=== PATIENT | female | born 1935 | race Caucasian/White ===

== ENCOUNTER 2019-08-30 09:08 | Outpatient (CLI) | payer MEDICARE, SELFPAY ==
--- NOTE | 2019-08-30 09:17 | MM_ITS ---
WS: [id number] BILATERAL SCREENING DIGITAL MAMMOGRAM WITH CAD HISTORY: SCREENING COMPARISON: 04/26/2018 and 11/12/2016 Bilateral CC and MLO views submitted. Computer aided detection analyzed. Breast composition: There are scattered areas of fibroglandular density. No suspicious masses, microc alcifications or architectural distortion. Benign breast arterial calcifications within each breast. MM/[place] [id number] IMPRESSION: BI-RADS: 2-Benign FOLLOW UP: 1 Year Follow-up
== END 2019-08-30 09:09 | disposition home or self-care (01) ==
LOC: RADSHAW 09:10
PROVIDERS: PCP Family Medicine; Visit Provider Family Medicine
DX: Z12.31 Encounter for screening mammogram for malignant neoplasm of breast (principal)
CPT/HCPCS: 77067

== ENCOUNTER 2019-09-18 13:46 | Outpatient (CLI) | payer MEDICARE, SELFPAY ==
--- NOTE | 2019-09-18 13:59 | XR_ITS ---
WS: [id number] SCREENING DEXA SCAN [facility] CLINICAL INFORMATION: OSTEOPOROSIS COMPARISON: None. FINDINGS: The L1-L4 bone mineral density measures 1.504 g/cm2. This corresponds to a T score score of 2.7 and Z score of 4.4. Right femoral neck bone mineral density measures 0.826. This corresponds to a T score -1.4of and Z sc ore of 0.6. XR/XR DEXA axial skeleton* [id number] IMPRESSION: Osteopenia Patient's FRAX calculated 10 year probability for major osteoporotic fracture i s 21.7 % and osteoporotic hip fracture is 6.1%.
== END 2019-09-18 13:47 | disposition home or self-care (01) ==
LOC: RADWPI 13:49
PROVIDERS: Family Provider Family Medicine; PCP Family Medicine; Visit Provider Family Medicine
DX: M81.0 Age-related osteoporosis without current pathological fracture (principal)
CPT/HCPCS: 77080

== ENCOUNTER → 2019-10-16 13:52 | Outpatient (BNVA) | payer MEDICARE, SELFPAY | PROVIDERS: Family Provider Family Medicine; PCP Family Medicine; Visit Provider Dermatology | DX: D48.9 Neoplasm of uncertain behavior, unspecified (principal); L57.0 Actinic keratosis; Z85.828 Personal history of other malignant neoplasm of skin; Z12.83 Encounter for screening for malignant neoplasm of skin | CPT/HCPCS: 11102; 17000; 17003; 88305; 99203 ==

== ENCOUNTER → 2019-10-19 09:58 | Outpatient (BNVA) | payer MEDICARE, SELFPAY | PROVIDERS: Family Provider Family Medicine; PCP Family Medicine; Visit Provider Dermatology | DX: D48.9 Neoplasm of uncertain behavior, unspecified (principal) | CPT/HCPCS: 88304 ==

== ENCOUNTER → 2019-11-22 15:24 | Outpatient (BNVA) | payer MEDICARE, SELFPAY | PROVIDERS: Family Provider Family Medicine; PCP Family Medicine; Visit Provider Dermatology | DX: L24.9 Irritant contact dermatitis, unspecified cause (principal); L57.0 Actinic keratosis | CPT/HCPCS: 17000; 17003; 99213; 99214 ==

== ENCOUNTER 2020-09-03 08:52 | Outpatient (CLI) | payer MEDICARE, SELFPAY ==
--- NOTE | 2020-09-03 09:04 | MM_ITS ---
WS: [id number] Bilateral screening digital mammogram, 09/03/2020 08/30/2019, 04/26/2018, 11/12/2016, 10/15/2015, 09/23/2014, 08/29/2013. Clinical Data: SCREENING Comparison: None. Findings: The breast parenchymal pattern shows fibroglandular tissue. No spiculated masses or clustered calcifi cations are seen. There are no secondary signs of carcinoma. Multiple markers are on the right breast . There are small vascular calcifications in both breasts. MM/[place] [id number] Impression: 1. Negative bilateral mammogram unchanged. 2. Recommend annual screening mammograms. BIRADS: 1-Negative FOLLOW UP: 1 Year Follow-up The CAD core checker was used.
== END 2020-09-03 08:53 | disposition home or self-care (01) ==
PROVIDERS: Family Provider Family Medicine; PCP Family Medicine; Visit Provider Family Medicine
DX: Z12.31 Encounter for screening mammogram for malignant neoplasm of breast (principal)
CPT/HCPCS: 77067

== ENCOUNTER → 2021-09-29 12:29 | Outpatient (BNVA) | payer MEDICARE, SELFPAY | PROVIDERS: Family Provider Family Medicine; PCP Family Medicine; Visit Provider Internal Medicine Cardiovascular Disease | DX: I10 Essential (primary) hypertension (principal); I45.10 Unspecified right bundle-branch block | CPT/HCPCS: 99213 ==

== ENCOUNTER 2021-10-09 13:38 | Outpatient (CLI) | payer MEDICARE, SELFPAY ==
--- NOTE | 2021-10-09 13:44 | MM_ITS ---
WS: [id number] BILATERAL 3D TOMOSYNTHESIS DIGITAL SCREENING MAMMOGRAPHY WITH CAD CLINICAL INFORMATION: SCREENING HISTORY: Screening mammogram. No current complaints. COMPARISON: September 03, 2020 TECHNIQUE: Bilateral CC and MLO views. FINDINGS: Scattered fibroglandular densities bilaterally. Vascular calcification. No suspicious focal mass, asy mmetry, calcifications, or architectural distortion. No evidence of malignancy. MM/[place] [id number] IMPRESSION: BI-RADS: 2-Benign FOLLOW UP: 1 Year Follow-up Recommend return to annual screening mammography.
== END 2021-10-09 13:39 | disposition home or self-care (01) ==
LOC: RAD 13:38
PROVIDERS: Family Provider Family Medicine; PCP Family Medicine; Visit Provider Family Medicine
DX: Z12.31 Encounter for screening mammogram for malignant neoplasm of breast (principal)
CPT/HCPCS: 77063; 77067

== ENCOUNTER 2021-10-26 13:01 | Outpatient (CLI) | payer MEDICARE, SELFPAY ==
--- NOTE | 2021-10-26 13:20 | XR_ITS ---
WS: [id number] DEXA (DUAL ENERGY X-RAY ABSORPTIOMETRY) Bone mineral density was performed using a [employer] machine. HISTORY: POST MENOPAUSAL COMPARISON: 09/18/2019 Lumbar spine BMD (L1-L4): 1.508 g/cm2 T score: 2.7 Z score: 4.4 Total hip BMD: Right: 0.821. T score: -1.5 Z score: 0.6 10 year probability of a major osteoporotic fracture is 21.5%. Compared to the prior study from 09/18/2019. Lumbar spine bone mineral density has increased by 0.3%. RIGHT hip bone mineral density has decreased by 0.6%. IMPRESSION: OSTEOPENIA based upon the WHO classification for females. No significant change in bone mineral density since the prior study.
== END 2021-10-26 13:02 | disposition home or self-care (01) ==
PROVIDERS: PCP Family Medicine; Visit Provider Family Medicine
DX: Z78.0 Asymptomatic menopausal state (principal); M85.80 Other specified disorders of bone density and structure, unspecified site
CPT/HCPCS: 77080

== ENCOUNTER → 2022-02-10 08:14 | Outpatient (BNVA) | payer MEDICARE, SELFPAY | PROVIDERS: PCP Family Medicine; Visit Provider Family Medicine | DX: I10 Essential (primary) hypertension (principal); K21.9 Gastro-esophageal reflux disease without esophagitis; Z00.00 Encounter for general adult medical examination without abnormal findings | CPT/HCPCS: 80053; 80061; 85025 ==

== ENCOUNTER → 2022-05-13 08:56 | Outpatient (BNVA) | payer MEDICARE, SELFPAY | PROVIDERS: PCP Family Medicine; Visit Provider Nurse Practitioner Family | DX: I10 Essential (primary) hypertension (principal) | CPT/HCPCS: 99213 ==

== ENCOUNTER → 2022-09-30 09:03 | Outpatient (BNVA) | payer MEDICARE, SELFPAY | PROVIDERS: PCP Family Medicine; Visit Provider Nurse Practitioner Family | DX: L57.0 Actinic keratosis (principal); L23.9 Allergic contact dermatitis, unspecified cause; L57.8 Other skin changes due to chronic exposure to nonionizing radiation; L81.4 Other melanin hyperpigmentation; Z85.828 Personal history of other malignant neoplasm of skin | CPT/HCPCS: 17000; 17003; 99214 ==

== ENCOUNTER 2022-10-26 11:10 | Outpatient (CLI) | payer MEDICARE, SELFPAY ==
--- NOTE | 2022-10-26 11:38 | MM_ITS ---
WS: [id number] BILATERAL 3D TOMOSYNTHESIS DIGITAL SCREENING MAMMOGRAPHY WITH CAD CLINICAL INFORMATION: SCREENING HISTORY: Screening mammogram. No current complaints. COMPARISON: 2021 TECHNIQUE: Bilateral CC and MLO views. FINDINGS: Scattered fibroglandular densities bilaterally. No suspicious focal mass, asymmetry, calcifications, or architectural distortion. No evidence of malignancy. Vascular calcification. MM/[place] [id number] IMPRESSION: BI-RADS: 2-Benign FOLLOW UP: 1 Year Follow-up Recommend return to annual screening mammography.
== END 2022-10-26 11:11 | disposition home or self-care (01) ==
LOC: RAD 11:13
PROVIDERS: PCP Family Medicine; Visit Provider Family Medicine
DX: Z12.31 Encounter for screening mammogram for malignant neoplasm of breast (principal)
CPT/HCPCS: 77063; 77067

== ENCOUNTER → 2022-11-23 10:10 | Outpatient (BNVA) | payer MEDICARE, SELFPAY | PROVIDERS: PCP Family Medicine; Visit Provider Family Medicine | DX: Z00.00 Encounter for general adult medical examination without abnormal findings (principal); I10 Essential (primary) hypertension; K21.9 Gastro-esophageal reflux disease without esophagitis; M81.0 Age-related osteoporosis without current pathological fracture | CPT/HCPCS: 80053; 80061; 85025 ==

== ENCOUNTER → 2022-12-02 09:35 | Outpatient (BNVA) | payer MEDICARE, SELFPAY | PROVIDERS: PCP Family Medicine; Visit Provider Nurse Practitioner Family | DX: L23.9 Allergic contact dermatitis, unspecified cause (principal); L57.8 Other skin changes due to chronic exposure to nonionizing radiation; L57.0 Actinic keratosis; L85.3 Xerosis cutis; Z85.828 Personal history of other malignant neoplasm of skin | CPT/HCPCS: 17004; 99214 ==

== ENCOUNTER → 2022-12-08 12:44 | Outpatient (BNVA) | payer MEDICARE, SELFPAY | PROVIDERS: PCP Family Medicine; Visit Provider Internal Medicine Cardiovascular Disease | DX: I10 Essential (primary) hypertension (principal); I45.10 Unspecified right bundle-branch block | CPT/HCPCS: 99213 ==

== ENCOUNTER → 2023-02-07 13:12 | Outpatient (BNVA) | payer MEDICARE, SELFPAY | PROVIDERS: PCP Family Medicine; Visit Provider Dermatology | DX: D48.5 Neoplasm of uncertain behavior of skin (principal); L23.9 Allergic contact dermatitis, unspecified cause; D18.01 Hemangioma of skin and subcutaneous tissue; L82.1 Other seborrheic keratosis; Z85.828 Personal history of other malignant neoplasm of skin | CPT/HCPCS: 11102; 99213 ==

== ENCOUNTER → 2023-03-11 08:16 | Outpatient (BNVA) | payer MEDICARE, SELFPAY | PROVIDERS: PCP Family Medicine; Visit Provider Dermatology | DX: C44.612 Basal cell carcinoma of skin of right upper limb, including shoulder (principal) | CPT/HCPCS: 11602; 12032 ==

== ENCOUNTER → 2023-03-25 08:44 | Outpatient (BNVA) | payer MEDICARE, SELFPAY | PROVIDERS: PCP Family Medicine; Visit Provider Nurse Practitioner Family | DX: Z48.02 Encounter for removal of sutures (principal) | CPT/HCPCS: 99212 ==

== ENCOUNTER → 2023-06-08 13:15 | Outpatient (BNVA) | payer MEDICARE, SELFPAY | PROVIDERS: PCP Family Medicine; Visit Provider Internal Medicine Cardiovascular Disease | DX: I10 Essential (primary) hypertension (principal); I45.10 Unspecified right bundle-branch block | CPT/HCPCS: 99213 ==

== ENCOUNTER → 2023-12-06 09:02 | Outpatient (BNVA) | payer MEDICARE, SELFPAY | PROVIDERS: PCP Family Medicine; Visit Provider Nurse Practitioner Family | DX: I10 Essential (primary) hypertension (principal) | CPT/HCPCS: 99213 ==

== ENCOUNTER → 2024-02-08 11:06 | Outpatient (BNVA) | payer MEDICARE, SELFPAY | PROVIDERS: PCP Family Medicine; Visit Provider Family Medicine | DX: I10 Essential (primary) hypertension (principal); Z00.00 Encounter for general adult medical examination without abnormal findings | CPT/HCPCS: 80053; 80061; 85025 ==

== ENCOUNTER 2024-02-17 05:50 | Emergency (ER) | payer MEDICARE, SELFPAY ==
[2024-02-17] VITALS (8 sets, daily range): BP systolic 119–161; BP diastolic 68–86; PULSE 88–100; RESP 15–18; TEMP 36.8; O2SAT 94–99; BMI 27.3
--- NOTE | 2024-02-17 05:57 | XRR_ITS ---
PROCEDURE INFORMATION: Exam: XR Left Hip Exam date and time: 02/17/2024 6:20 AM Age: 88 years old Clinical indication: Injury or trauma; Fall; Blunt trauma (contusions or hematomas); Left; Prior surgery; Surgery date: 6+ months; Surgery type: Lt hip TECHNIQUE: Imaging protocol: Radiologic exam of the left hip. Views: 2 or 3 views hip with pelvis when performed. COMPARISON: CR XR hip LT 2-3V wo/w pel* [id number] 05/17/2018 4:22 PM FINDINGS: Bones/joints: Total-knee replacement. Anatomic alignment. Bone and metal are intact.. No acute fracture. Soft tissues: Unremarkable. XR/XR hip LT 2-3V wo/w pel* [id number] IMPRESSION: No acute findings.
--- NOTE | 2024-02-17 05:58 | ED_ITS ---
HPI - General Adult 2 General: Chief complaint: Extremity Injury, Lower Stated complaint: Fall, LT side hip pain Time Seen by Provider: 02/17/24 05:50 History of Present Illness: 88-year-old female presents to the emerg ency room via EMS after a fall. She fell around 5:00 yesterday she is approximately 13 hours after the fall she had laid on the floor since that time. She was not able to get herself up when EMS got there she states she did partially bear weight on the left leg but it was extremely painful she complaining of pain at the left hip. She has previously had a right hip arthroplasty. She denies any other injury no loss consciousness did not strike her head no chest pain no shortness of breath no abdominal pain not recently been ill. Associated symptoms: Deny chest pain, dyspnea or rash Related Data Home Medications Medication Instructions Recorded Confirmed calcium carbonate (Calcium 600) 600 mg PO DAILY 08/08/19 02/17/24 omeprazole 20 mg capsule,delayed 20 mg PO DAILY 02/17/24 02/17/24 release oxybutynin chloride 5 mg tablet 5 mg PO DAILY 02/17/24 02/17/24 Previous Rx's Medication Instructions Recorded hydralazine 25 mg tablet 25 mg PO TID #270 tabs 04/01/23 hydralazine 10 mg tablet 10 mg PO .prn PRN hypertension #30 04/20/23 tabs alendronate 70 mg tablet See Rx Instructions .Route 11/15/23 .COMPLEX #12 tabs losartan 100 mg tablet 100 mg PO DAILY #90 tabs 12/06/23 Allergies Allergy/AdvReac Type Severity Reaction Status Date / Time Penicillins Allergy Unknown Verified 12/06/23 09:08 Review of Systems 2 Const: Denies: fever(s) or chills Card: Denies: chest pain Resp: Denies: dyspnea GI: Denies: abdominal pain : Denies: dysuria, urinary frequency or urinary urgency Musc: Reports: joint pain; Denies: neck pain or back pain Skin/Breast: Denies: rash PFSH ED 2 PFSH: Medical History History of nonmelanoma skin cancer HTN (hypertension) GERD (gastroesophageal reflux disease) RBBB Surgical History S/P tubal ligation History of hip surgery Left S/P total knee replacement Bilateral S/P tonsillectomy History of suburethral sling procedure Family History Sister Diabetes Denies family history of CAD (coronary artery disease) Clotting disorder Dementia Chronic kidney disease (CKD) Suicide Anesthesia complication Bleeding disorder Lung disease Cancer Stroke Social History Smoking and tobacco/nicotine status: never used tobacco/nicotine Alcohol intake: current Alcohol intake frequency: few times a week Alcohol type: wine Substance/Drug Use: never Physical Exam 2 Const: COMMON NORMALS: no acute distress GENERAL APPEARANCE: cooperative and comfortable ORIENTATION/CONSCIOUSNESS: Yes awake, Yes oriented to person, Yes oriented to place and Yes oriented to time HENMT: COMMON NORMALS: normocephalic, atraumatic and hearing grossly normal bilaterally HEAD & SCALP: normocephalic and atraumatic Resp: COMMON NORMALS: normal respiratory effort, No retractions, No use of accessory muscles and clear to auscultation bilaterally AUSCULTATION: clear to auscultation bilaterally Cardio: COMMON NORMALS: regular rate, regular rhythm and No murmurs present (Cardio) RATE: regular rate RHYTHM: regular rhythm GI: COMMON NORMALS: Soft to palpation and No hepatosplenomegaly present A USCULTATION: Yes normoactive bowel sounds PALPATION: Yes Soft to palpation, No Tenderness to palpation present (GI), No Guarding due to palpation present (GI) and Yes No hepatosplenomegaly present Extremity: COMMON NORMALS: normal to inspection, capillary refill normal, no clubbing, cyanosis or edema, no calf tenderness and no pedal edema OTHER: Pain at the right hip but patient does spontaneously flex at the hip mild discomfort reported neurovascularly left leg is intact distally Neuro: SENSORIUM/ORIENTATION: Yes oriented to person, Yes oriented to place and Yes oriented to time Skin: COMMON NORMALS: no rashes or lesions noted GENERAL SKIN EXAM: no rashes or lesions noted Course 2 Vital Signs: Vital signs: Vital Signs Temperature 98.3 F 02/17/24 05:55 Pulse Rate 100 02/17/24 09:36 Respiratory Rate 18 02/17/24 06:38 Blood Pressure 134/76 02/17/24 09:36 Pulse Oximetry 97 02/17/24 09:36 Oxygen Delivery Me thod Room Air 02/17/24 06:00 MDM - General Adult Medical Decision Making X-ray negative patient is still complaining of pain. CT done no findings of fracture. Reviewed with her she was able to ambulate after that to the bathroom twice without significant difficulty. She has a mild elevation of her CPK. Creatinine is normal at this point I do not think she will require hospitalization will discharge patient home increase fluid intake follow-up with your primary care doctor next week for repeat lab testing. Medical Records I reviewed the patient's medical records. Lab Data I reviewed the patient's lab results. 02/17/24 05:37 02/17/24 05:37 Radiology Impressions Hip/Pelvis X-Ray 02/17/24 05:57 IMPRESSION: No acute findings. Chest X-Ray 02/17/24 05:58 IMPRESSION: Minimal left lower lobe infiltrate. Hip CT 02/17/24 06:57 IMPRESSION: 1. Hip replacement. 2. No acute abnormality. Laboratory Results WBC 12.43 10^3/uL (3.29-11.43) H 02/17/24 05:37 RBC 4.76 10^6/uL (3.85-5.65) 02/17/24 05:37 Hgb 13.60 g/dL (11.27-16.99) 02/17/24 05:37 Hct 41.8 % (36-47) 02/17/24 05:37 MCV 87.8 fl (85-98) 02/17/24 05:37 MCH 28.6 pg (27-33) 02/17/24 05:37 MCHC 32.5 g/dL (30-55) 02/17/24 05:37 RDW 15.4 % (12.1-15.1) H 02/17/24 05:37 Plt Count 320 10^3/cmm (157-399) 02/17/24 05:37 MPV 9.6 fL (7.4-10.4) 02/17/24 05:37 Neut % (Auto) 85.2 % 02/17/24 05:37 Lymph % (Auto) 7.4 % 02/17/24 05:37 [place] % (Auto) 6.8 % 02/17/24 05:37 Eos % (Auto) 0.1 % 02/17/24 05:37 Baso % (Auto) 0.2 % 02/17/24 05:37 Neut # (Auto) 10.59 10^3/uL (1.8-7.7) H 02/17/24 05:37 Lymph # (Auto) 0.9 10^3/uL (0.8-4.8) 02/17/24 05:37 [place] # (Auto) 0.8 10^3/uL (0.2-0.9) 02/17/24 05:37 Eos # (Auto) 0.0 10^3/uL (0.0-0.8) 02/17/24 05:37 Baso # (Auto) 0.0 10^3/uL (0.0-0.1) 02/17/24 05:37 Nucleated RBC % (auto) 0 % 02/17/24 05:37 Nucleated RBCs # 0.0 /100WBC 02/17/24 05:37 Sodium 131 mmol/L (136-145) L 02/17/24 05:37 Potassium 4.4 mmol/L (3.5-5.1) 02/17/24 05:37 Chloride 94 mmol/L (98-107) L 02/17/24 05:37 Carbon Dioxide 24 mmol/L (22-29) 02/17/24 05:37 Anion Gap 17.4 (5-19) 02/17/24 05:37 BUN 12 mg/dL (8-23) 02/17/24 05:37 Creatinine 0.5 mg/dL (0.5-0.9) 02/17/24 05:37 GFR Calculation Not Reportable 02/17/24 05:37 Glucose 106 mg/dL (65-115) 02/17/24 05:37 Calculated Osmolality 272 mOsm/kg (285-295) L 02/17/24 05:37 Calcium 9.1 mg/dL (8.5-10.5) 02/17/24 05:37 Total Bilirubin 0.6 mg/dL (0.15-1.2) 02/17/24 05:37 AST 37 U/L (0-32) H 02/17/24 05:37 ALT 21 U/L (0-33) 02/17/24 05:37 Alkaline Phosphatase 72 U/L (35-105) 02/17/24 05:37 Creatine Kinase 451 U/L (26-192) H* 02/17/24 05:37 Total Protein 7.7 g/dL (6.6-8.7) 02/17/24 05:37 Albumin 4.2 g/dL (3.5-5.2) 02/17/24 05:37 Globulin 3.5 g/dL (1.3-4.6) 02/17/24 05:37 Urine Color Yellow (Yellow) 02/17/24 06:43 Urine Appearance Clear (CLEAR) 02/17/24 06:43 Urine pH 7.0 (5-7) 02/17/24 06:43 Ur Specific [place] 1.010 (1.005-1.030) 02/17/24 06:43 Urine Protein Negative (Negative) 02/17/24 06:43 Urine Glucose (UA) Negative (Normal) 02/17/24 06:43 Urine Ketones 1+ (Negative) H 02/17/24 06:43 Urine Blood Negative (Negative) 02/17/24 06:43 Urine Nitrate Negative (Negative) 02/17/24 06:43 Urine Bilirubin Negative (Negative) 02/17/24 06:43 Urine Urobilinogen 0.2 mg/dL (Negative) 02/17/24 06:43 Ur Leukocyte Esterase Negative (Negative) 02/17/24 06:43 Urine RBC 0-2 /hpf (0-2) 02/17/24 06:43 Urine WBC 0-5 /hpf (0-5) 02/17/24 06:43 Ur Squamous Epith Cells 0-5 /hpf (0-5) 02/17/24 06:43 Amorphous Sediment Not Reportable 02/17/24 06:43 Urine Bacteria None seen /hpf (NONE) 02/17/24 06:43 Hyaline Casts 0.40 /lpf 02/17/24 06:43 All radiology interpretation(s) finalized by discharge Discharge Plan Discharge Patient Disposition: Home Clinical Impression: Fall, Rhabdomyolysis Condition: Stable Prescriptions: No Action calcium carbonate [Calcium 600] 600 mg calcium (1,500 mg) tablet 600 mg PO DAILY losartan 100 mg tablet 100 mg PO DAILY Qty: 90 3RF hydralazine 25 mg tablet 25 mg PO TID Qty: 270 3RF hydralazine 10 mg tablet 10 mg PO .prn PRN (Reason: hypertension) Qty: 30 6RF Rx Instructions: TAKE IF SBP >160 mm Hg alendronate 70 mg tablet See Rx Instructions .ROUTE .COMPLEX Qty: 12 3RF Dose Instruction: Take 1 tablet by mouth once a week Rx Instructions: Take 1 tablet by mouth once a week omeprazole 20 mg capsule,delayed release(DR/EC) 20 mg PO DAILY oxybutynin chloride 5 mg tablet 5 mg PO DAILY Discharge Orders: Discharge ED (Routine); Ordered 02/17/24 Ordered By: Raul Kellogg Referrals: Alonzo Rivas MD [Primary Care Provider] - Discharge Diet: Usual diet Discharge Activity: Increase activity as tolerated Patient Instructions: Opioid Safety, Pain Management Activity Restrictions/Additional Instructions: Thank you for choosing [facility] for your healthcare needs today. It is very important that you follow up as instructed or that you return to the Emergency Department should you have concerns or if your condition changes or worsens in any way. You are seen in emergency room after a fall. X-ray of your hip and CT did not show any acute fractures. Your labs did show an increase CPK this is from muscle breakdown, likely from laying on the floor for an extended period of time. Your kidney function is still normal. Your labs should be rechecked in 2 to 3 days at your primary care doctor's office. Coding Level of Care Code ED After School Caregiver for Javier Fong
--- NOTE | 2024-02-17 05:58 | XRR_ITS ---
PROCEDURE INFORMATION: Exam: XR Chest Exam date and time: 02/17/2024 6:20 AM Age: 88 years old Clinical indication: Cough and dyspnea; Additional info: Dyspnea/cough TECHNIQUE: Imaging protocol: Radiologic exam of the chest. Views: 1 view. COMPARISON: CR XR chest 1V [id number] 05/16/2018 5:47 PM FINDINGS: Lungs: Mild atelectasis or infiltrate in the left lower lobe. Pleural spaces: Unremarkable. No pleural effusion. No pneumothorax. Heart/Mediastinum: See Vasculature finding. Vasculature: Borderline cardiomegaly and uncoiling of the thoracic aorta. Bones/joints: Degenerative changes of the shoulders. XR/XR chest 1V portable [id number] IMPRESSION: Minimal left lower lobe infiltrate.
--- NOTE | 2024-02-17 06:09 | ECG_ITS ---
[facility] Date: 2024-02[facility]17 Pat Name: Elvira Gonzalez Department: Room: Gender: Female P 3 Armament/Ordnance Ima Technician: : 1935 Requested By: Raul Bustillos Order Number: [id number] Katelynn MD: Jesús Urena M.D. Measurements Intervals [place] Rate: 88 P: 77 IN: 192 QRS: 65 QRSD: 126 T: 44 QT: 377 QTc: 458 Interpretive Statements SINUS RHYTHM WITH OCCASIONAL SUPRAVENTRICULAR PREMATURE COMPLEXES RIGHT BUNDLE BRANCH BLOCK [120+ ms QRS DURATION, UPRIGHT V1, 40+ ms S IN I/aVL/V4/V5/V6] Compared to ECG 12/26/2018 09:16:01 No significant changes Electronically Signed On 02-18-2024 10:26:33 ELECTRIC CELL TENDER by Jesús Urena M.D. [email or web address]
[2024-02-17 06:12] LABS: Basophils % 0.2 %; Eosinophils % 0.1 %; Hematocrit 41.8 % (36-47); Lymphocytes # 0.9 10^3/uL (0.8-4.8); Lymphocytes % 7.4 %; Mean Corpuscular HGB Conc 32.5 g/dL (30-55); Mean Corpuscular Hemoglobin 28.6 pg (27-33); Mean Corpuscular Volume 87.8 fl (85-98); Mean Platelet Volume 9.6 fL (7.4-10.4); Monocytes # 0.8 10^3/uL (0.2-0.9); Monocytes % 6.8 %; Neutrophils # 10.59 10^3/uL (1.8-7.7); Neutrophils % 85.2 %; Nucleated Red Blood Cells % 0 %; Platelet Count 320 10^3/cmm (157-399); Red Blood Count 4.76 10^6/uL (3.85-5.65); Red Cell Distribution Width 15.4 % (12.1-15.1); White Blood Count 12.43 10^3/uL (3.29-11.43)
[2024-02-17 06:35] LABS: Alanine Aminotransferase 21 U/L (0-33); Albumin Level 4.2 g/dL (3.5-5.2); Alkaline Phosphatase 72 U/L (35-105); Aspartate Amino Transferase 37 U/L (0-32); Blood Urea Nitrogen 12 mg/dL (8-23); Calcium 9.1 mg/dL (8.5-10.5); Carbon Dioxide 24 mmol/L (22-29); Chloride 94 mmol/L (98-107); Creatinine Clr Calc Pharmacy 41.2186; Globulin 3.5 g/dL (1.3-4.6); Glucose 106 mg/dL (65-115); Osmolality Calculated 272 mOsm/kg (285-295); Sodium 131 mmol/L (136-145); Total Bilirubin 0.6 mg/dL (0.15-1.2); Total Protein 7.7 g/dL (6.6-8.7)
[2024-02-17 06:38] LABS: Anion Gap 17.4 (5-19); Potassium 4.4 mmol/L (3.5-5.1)
[2024-02-17 06:39] LABS: Creatine Phosphokinase 451 U/L (26-192)
[2024-02-17 06:51] LABS: Bilirubin Urine Negative (Negative); Blood Urine Negative (Negative); Glucose Urine UA Negative (Normal); Ketones Urine 1+ (Negative); Leukocyte Esterase Urine Negative (Negative); Nitrate Urine Negative (Negative); Protein Urine Negative (Negative); Urine Appearance Clear (CLEAR); Urine Color Yellow (Yellow); Urobilinogen Urine 0.2 mg/dL (Negative)
[2024-02-17 06:53] LABS: Add Urine Microscopic? YES; Bacteria Urine None Seen /hpf; RBC Urine 0-2 /hpf (0-2); Squamous Epithelial Cell Urine 0-5 /hpf (0-5); WBC Urine 0-5 /hpf (0-5)
--- NOTE | 2024-02-17 06:57 | CTR_ITS ---
PROCEDURE INFORMATION: Exam: CT Left Lower Extremity, Hip Exam date and time: 02/17/2024 7:06 AM Age: 88 years old Clinical indication: Injury or trauma; Fall; Blunt trauma; Left; Prior surgery; Surgery date: 6+ months; Surgery type: Lt hip; Additional info: Pain after fall - unable to bear weight TECHNIQUE: Imaging protocol: CT of the left lower extremity without contrast was performed. Exam focused on the hip. Radiation optimization: All CT scans at this facility use at least one of these dose optimization techniques: automated exposure control; mA and/or kV adjustment per patient size (includes targeted exams where dose is matched to clinical indication); or iterative reconstruction. COMPARISON: CR (PELVIS, ) 02/17/2024 6:20 AM RADIATION DOSE METRICS: Total DLP (mGy-cm): 529.29 FINDINGS: Bones/joints: Total hip replacement. Anatomic alignment. Bone and metal are intact. I see no evidence of fracture or dislocation. No lytic or sclerotic bone lesion. The soft tissues are normal. Soft tissues: See Bones/joints finding. Bowel: Diverticulosis without evidence of diverticulitis. CT/CT hip LT wo con* [id number] IMPRESSION: 1. Hip replacement. 2. No acute abnormality.
--- NOTE | 2024-02-17 07:08 | PC.NURSE ---
took over pt care at 0650 YESSICA Orozco
== END 2024-02-17 09:37 | disposition home or self-care (01) ==
PROVIDERS: Emergency Provider Family Medicine; PCP Family Medicine
DX: M62.82 Rhabdomyolysis (principal); W19.XXXA Unspecified fall, initial encounter; Z85.828 Personal history of other malignant neoplasm of skin; I10 Essential (primary) hypertension
CPT/HCPCS: 71045; 73502; 73700; 80053; 81001; 82550; 85025; 93005; 99285

== ENCOUNTER 2024-02-28 08:23 | Outpatient (CLI) | payer MEDICARE, SELFPAY ==
--- NOTE | 2024-02-28 08:30 | MM_ITS ---
WS: [id number] BILATERAL SCREENING DIGITAL TOMOSYNTHESIS MAMMOGRAM WITH CAD HISTORY: screening COMPARISON: 10/26/2022, 10/09/2021 and 09/03/2020 Bilateral CC and MLO views with tomosynthesis and synthetic mammography submitted. Computer aided det ection analyzed. Breast composition: The breasts are almost entirely fatty. No suspicious masses, microcalcifications or architectural distortion. Scattered vascular calcifications. MM/MM scr BI tomosynthesis [id number] IMPRESSION: BI-RADS: 2 - Benign. FOLLOW UP: 1 Year Follow-up
== END 2024-02-28 08:24 | disposition home or self-care (01) ==
LOC: RAD 08:23
PROVIDERS: PCP Family Medicine; Visit Provider Family Medicine
DX: Z12.31 Encounter for screening mammogram for malignant neoplasm of breast (principal); I10 Essential (primary) hypertension; E87.1 Hypo-osmolality and hyponatremia; R92.313 Mammographic fatty tissue density, bilateral breasts; R92.1 Mammographic calcification found on diagnostic imaging of breast
CPT/HCPCS: 77063; 77067; 80048; 85025

== ENCOUNTER 2024-03-16 17:24 | Inpatient (IN) | payer MEDICARE, SELFPAY ==
[2024-03-16 17:28] VITALS: BP 137/70; PULSE 97; RESP 18; TEMP 36.6; O2SAT 93; BMI 29.2
--- NOTE | 2024-03-16 17:28 | ECG_ITS ---
[facility] Date: 2024-03-16 Pat Name: Elvira Gonzalez Department: Room: Gender: Female Distribution Designer: : 1935 Requested By: Barrett Felix Order Number: [id number] Katelynn MD: Evelyn Shipman M.D. Measurements Intervals [place] Rate: 86 P: 75 ME: 197 QRS: 1 QRSD: 134 T: -7 QT: 375 QTc: 450 Interpretive Statements SINUS RHYTHM RIGHT BUNDLE BRANCH BLOCK [120+ ms QRS DURATION, UPRIGHT V1, 40+ ms S IN I/aVL/V4/V5/V6] Compared to ECG 02/17/2024 06:09:42 No significant changes Electronically Signed On 03-16-2024 19:51:16 FERMENTER by Evelyn Shipman M.D. [email or web address]
--- NOTE | 2024-03-16 17:28 | XRR_ITS ---
PROCEDURE INFORMATION: Exam: XR Pelvis Exam date and time: 03/16/2024 5:47 PM Age: 88 years old Clinical indication: Pelvic pain; Patient HX: SOB; HTN; RT lower ext pain post fall; RT femur FX TECHNIQUE: Imaging protocol: Radiologic exam of the pelvis. Views: 1 or 2 view. COMPARISON: CR (PELVIS, ) 02/17/2024 6:20 AM FINDINGS: Bones/joints: Pelvic structures are intact without fracture. Left hip arthroplasty noted in expected alignment. Soft tissues: Unremarkable. XR/XR pelvis 1-2V* [id number] IMPRESSION: No acute findings.
--- NOTE | 2024-03-16 17:28 | XRR_ITS ---
PROCEDURE INFORMATION: Exam: XR Right Femur Exam date and time: 03/16/2024 5:47 PM Age: 88 years old Clinical indication: Lower leg; Right; Patient HX: SOB; HTN; RT lower ext pain post fall; RT femur FX TECHNIQUE: Imaging protocol: Radiologic exam of the right femur. Views: 2 views. COMPARISON: CR XR pelvis 1-2V* [id number] 03/16/2024 5:47 PM FINDINGS: Bones/joints: Spiral fracture of the mid femoral diaphysis with 1 shaft width displacement and foreshortening of the fracture fragments. Soft tissues: Soft tissue swelling around the fracture. XR/XR femur RT min 2V* [id number] IMPRESSION: Displaced mid femoral fracture with foreshortening.
--- NOTE | 2024-03-16 17:29 | XRR_ITS ---
PROCEDURE INFORMATION: Exam: XR Chest Exam date and time: 03/16/2024 5:47 PM Age: 88 years old Clinical indication: Chest pressure; Patient HX: SOB; HTN; RT lower ext pain post fall; RT femur FX TECHNIQUE: Imaging protocol: Radiologic exam of the chest. Views: 1 view. COMPARISON: CR (CHEST, ) 02/17/2024 6:20 AM FINDINGS: Lungs: Unremarkable. No consolidation. Pleural spaces: Unremarkable. No pleural effusion. No pneumothorax. Heart/Mediastinum: Unremarkable. No cardiomegaly. Bones/joints: Unremarkable. XR/XR chest 1V portable [id number] IMPRESSION: No acute findings.
--- NOTE | 2024-03-16 17:33 | ED_ITS ---
HPI - Fall General: Chief Complaint: Fall Stated Complaint: right hip pain - post fall Time Seen by Provider: 03/16/24 17:26 History of Present Illness: Presents to the ER by EMS with complaints of a mechanical fall and right femur pain. Patient states she tripped over a step walking into her house and fell and had immediate pain in her right proximal femur midshaft area there is shortening and deformity. Patient denies hitting her head loss of consciousness or any other complaint at this time. Patient is not on any type of anticoagulation. Related Data Home Medications Medication Instructions Recorded Confirmed calcium carbonate (Calcium 600) 600 mg PO DAILY 08/08/19 02/28/24 omeprazole 20 mg capsule,delayed 20 mg PO DAILY 02/17/24 02/28/24 release oxybutynin chloride 5 mg tablet 5 mg PO DAILY 02/17/24 02/28/24 Previous Rx's Medication Instructions Recorded hydralazine 25 mg tablet 25 mg PO TID #270 tabs 04/01/23 hydralazine 10 mg tablet 10 mg PO .prn PRN hypertension #30 04/20/23 tabs alendronate 70 mg tablet See Rx Instructions .Route 11/15/23 .COMPLEX #12 tabs losartan 100 mg tablet 100 mg PO DAILY #90 tabs 12/06/23 Allergies Allergy/AdvReac Type Severity Reaction Status Date / Time Penicillins Allergy Unknown Verified 03/16/24 17:38 Review of Systems General: Reports: 10 or more systems reviewed and unremarkable except in HPI and below PFSH ED PFSH: Medical History History of nonmelanoma skin cancer HTN (hypertension) GERD (gastroesophageal reflux disease) RBBB Surgical History S/P tubal ligation History of hip surgery Left S/P total knee replacement Bilateral S/P tonsillectomy History of suburethral sling procedure Family History Sister Diabetes Denies family history of CAD (coronary artery disease) Clotting disorder Dementia Chronic kidney disease (CKD) Suicide Anesthesia complication Bleeding disorder Lung disease Cancer Stroke Social History Smoking and tobacco/nicotine status: unknown if used tobacco/nicotine Alcohol intake: current Alcohol intake frequency: few times a week Alcohol type: wine Substance/Drug Use: never Physical Exam Const: COMMON NORMALS: no acute distress, average body habitus, patient orient ed x3, no limitations, healthy appearing, alert and well nourished HENMT: COMMON NORMALS: normocephalic, atraumatic, hearing grossly normal bilaterally, external ears normal, Normal external nose present and moist oral mucous membranes HEAD & SCALP: normocephalic and atraumatic NOSE: Normal external nose present EXTERNAL EAR: Yes external ears normal Neck/C-Spine: COMMON NORMALS: no JVD Chest: COMMONS NORMALS: normal inspection of the chest and normal palpation of entire chest wall Resp: COMMON NORMALS: normal respiratory effort, No retractions, No use of accessory muscles and clear to auscultation bilaterally AUSCULTATION: clear to auscultation bilaterally Cardio: COMMON NORMALS: no JVD, regular rate, regular rhythm, S1 normal heart sound present, S2 normal heart sound present, No gallops present (Cardio), No clicks present (Cardio), No murmurs present (Cardio) and No rub (Cardio) RATE: regular rate RHYTHM: regular rhythm HEART SOUNDS: S1 normal heart sound present and S2 normal heart sound present GI: COMMON NORMALS: Normal to inspection, nondistended, normoactive bowel sounds present, Soft to palpation, non-tender, No hepatosplenomegaly present and no masses PALPATION: Yes Soft to palpation and Yes No hepatosplenomegaly present Extremity: NARRATIVE EXTREMITY EXAM: Shortening deformity of right proximal femur, step-off, tender to palpate, Neuro: COMMON NORMALS: patient oriented x3 SENSORIUM/ORIENTATION: Yes alert Course Vital Signs: Vital signs: Vital Signs Temperature 97.8 F 03/16/24 17:28 Pulse Rate 87 03/16/24 17:59 Respiratory Rate 16 03/16/24 17:59 Blood Pressure 145/80 03/16/24 17:59 Pulse Oximetry 93 03/16/24 17:59 Oxygen Delivery Me thod Room Air 03/16/24 17:59 MDM - Fall Medical Decision Making X-ray reviewed by myself showed midshaft femur fracture, these results was discussed with Dr. Burrell who says he can operate on her tomorrow, Dr. Senior was consulted who agreed to place patient in [facility] for definitive care of her comorbid conditions. Medical Records I reviewed the patient's medical records. Lab Data I reviewed the patient's lab results. All radiology interpretation(s) finalized by discharge Discharge Plan Discharge Patient Disposition: Admitted As Inpatient Clinical Impression: Closed femur fracture Qualifiers: Encounter type: initial encounter Femur location: shaft Fracture morphology: comminuted Fracture alignment: displaced Laterality: right Qualified Code(s): S72.351A - Displaced comminuted fracture of shaft of right femur, initial encounter for closed fracture Condition: Stable Coding Level of Care Code ED [employer] for [employer]
[2024-03-16 17:59] VITALS: BP 145/80; PULSE 87; RESP 16; O2SAT 93
[2024-03-16 18:23] LABS: Basophils % 0.1 %; Eosinophils # 0.1 10^3/uL (0.0-0.8); Eosinophils % 0.9 %; Hematocrit 38.6 % (36-47); Mean Corpuscular HGB Conc 32.4 g/dL (30-55); Mean Corpuscular Hemoglobin 28.6 pg (27-33); Mean Corpuscular Volume 88.3 fl (85-98); Mean Platelet Volume 9.6 fL (7.4-10.4); Monocytes # 0.9 10^3/uL (0.2-0.9); Monocytes % 6.4 %; Neutrophils # 12.56 10^3/uL (1.8-7.7); Neutrophils % 85.1 %; Nucleated Red Blood Cells % 0 %; Platelet Count 293 10^3/cmm (157-399); Red Blood Count 4.37 10^6/uL (3.85-5.65); Red Cell Distribution Width 14.5 % (12.1-15.1); White Blood Count 14.77 10^3/uL (3.29-11.43)
[2024-03-16 18:37] LABS: INR 0.84 (0.8-1.2)
[2024-03-16 18:41] LABS: Alanine Aminotransferase 15 U/L (0-33); Albumin Level 3.8 g/dL (3.5-5.2); Alkaline Phosphatase 61 U/L (35-105); Blood Urea Nitrogen 15 mg/dL (8-23); Calcium 9.3 mg/dL (8.5-10.5); Carbon Dioxide 23 mmol/L (22-29); Chloride 98 mmol/L (98-107); Creatinine Clr Calc Pharmacy 42.6376; Globulin 2.9 g/dL (1.3-4.6); Glucose 148 mg/dL (65-115); Osmolality Calculated 272 mOsm/kg (285-295); Sodium 129 mmol/L (136-145); Total Bilirubin 0.2 mg/dL (0.15-1.2); Total Protein 6.7 g/dL (6.6-8.7)
[2024-03-16 18:42] LABS: Anion Gap 13.1 (5-19); Aspartate Amino Transferase 22 U/L (0-32); Potassium 5.1 mmol/L (3.5-5.1)
[2024-03-16 19:13] LABS: Bilirubin Urine Negative (Negative); Blood Urine Negative (Negative); Glucose Urine UA Negative (Normal); Ketones Urine Negative (Negative); Leukocyte Esterase Urine Negative (Negative); Nitrate Urine Negative (Negative); Protein Urine Negative (Negative); Specific Gravity, Urine 1.013 (1.005-1.030); Urine Appearance Clear (CLEAR); Urine Color Yellow (Yellow); Urobilinogen Urine 0.2 mg/dL (Negative)
[2024-03-16 19:18] LABS: Add Urine Microscopic? YES; Bacteria Urine None Seen /hpf; RBC Urine 0-2 /hpf (0-2); Squamous Epithelial Cell Urine 0-5 /hpf (0-5); WBC Urine 0-5 /hpf (0-5)
--- NOTE | 2024-03-16 19:36 | P.HP_ITS ---
Providers/Chief Complaint 2 Admitting Physician: Louis Senior Primary Care Provider: Alonzo Rivas MD Chief Complaint: right hip pain - post fall History of Present Illness Very pleasant 88-year-old lady who is usually active, goes to [employer] several times a week, was trying to take stairs back into the house, but got distracted by her dog running at her, missed a step and fell down with severe pain in her right proximal leg. In ER she is found to have a right femoral fracture. Orthopedics has been consulted, request is made for hospital admission. She is originally from [place], lived in [facility] for about 30 years, then moved down to the area to live near her son after her 's passing. She was at baseline state of health up until the fall. Review of Systems 2 Const: Denies: fever(s), chills, body aches or malaise ENMT: Denies: throat pain Card: Denies: chest pain, edema, pre-syncope or dyspnea on exertion Resp: Denies: dyspnea, productive cough, change in phlegm color or hemoptysis GI: Denies: abdominal pain, nausea, vomiting, diarrhea, constipation, hematochezia or melena : Denies: flank pain, urinary frequency or hematuria Musc: Denies: back pain Neuro: Denies: headache(s) or confusion Medications/Allergies Home Medications Medication Instructions Recorded Confirmed Last Taken Type calcium carbonate (Calcium 600) 600 mg PO DAILY 08/08/19 02/28/24 Unknown History hydralazine 25 mg tablet 25 mg PO TID #270 tabs 04/01/23 02/28/24 Unknown Rx hydralazine 10 mg tablet 10 mg PO .prn PRN hypertension #30 04/20/23 02/28/24 Unknown Rx tabs alendronate 70 mg tablet See Rx Instructions .Route 11/15/23 02/28/24 Unknown Rx .COMPLEX #12 tabs losartan 100 mg tablet 100 mg PO DAILY #90 tabs 12/06/23 02/28/24 Unknown Rx omeprazole 20 mg capsule,delayed 20 mg PO DAILY 02/17/24 02/28/24 Unknown History release oxybutynin chloride 5 mg tablet 5 mg PO DAILY 02/17/24 02/28/24 Unknown History Allergies Allergy/AdvReac Type Severity Reaction Status Date / Time Penicillins Allergy Unknown Verified 03/16/24 17:38 PFSH Acute 2 PFSH: Medical History History of nonmelanoma skin cancer HTN (hypertension) GERD (gastroesophageal reflux disease) RBBB Surgical History S/P tubal ligation History of hip surgery Left S/P total knee replacement Bilateral S/P tonsillectomy History of suburethral sling procedure Family History Sister Diabetes Denies family history of CAD (coronary artery disease) Clotting disorder Dementia Chronic kidney disease (CKD) Suicide Anesthesia complication Bleeding disorder Lung disease Cancer Stroke Social History Smoking and tobacco/nicotine status: unknown if used tobacco/nicotine Alcohol intake: current Alcohol intake frequency: few times a week Alcohol type: wine Substance/Drug Use: never Vitals/I&O/Wt Last Vital Signs Temp 97.8 F 03/16/24 17:28 Pulse 87 03/16/24 17:59 Resp 16 03/16/24 17:59 BP 145/80 03/16/24 17:59 Pulse Ox 93 03/16/24 17:59 O2 Del Method Room Air 03/16/24 17:59 Weight last 48 hrs Weight 68.039 kg Physical Exam 2 Const: COMMON NORMALS: patient oriented x3 and alert GENERAL APPEARANCE: c ooperative ORIENTATION/CONSCIOUSNESS: Yes awake HENMT: COMMON NORMALS: oropharynx normal Neck/C-Spine: COMMON NORMALS: no JVD Resp: COMMON NORMALS: normal respiratory effort and clear to auscultation bilaterally AUSCULTATION: clear to auscultation bilaterally Cardio: COMMON NORMALS: no JVD, regular rhythm, S1 normal heart sound present, S2 normal heart sound present and No murmurs present (Cardio) RHYTHM: regular rhythm HEART SOUNDS: S1 normal heart sound present and S2 normal heart sound present GI: COMMON NORMALS: Normal to inspection, nondistended, normoactive bowel sounds present, Soft to palpation and non-tender PALPATION: Yes Soft to palpation Extremity: COMMON NORMALS: no joint enlargement and no pedal edema N ARRATIVE EXTREMITY EXAM: Shortened, everted right lower extremity. Neuro: COMMON NORMALS: patient oriented x3 and moves all extremities S ENSORIUM/ORIENTATION: Yes alert Skin: COMMON NORMALS: no rashes or lesions noted GENERAL SKIN EXAM: no rashes or lesions noted Urinary Catheter Management: Rojas: Cath Placed During This Visit: yes Urinary Catheter Date of Insertion: 03/16/24 Urinary Catheter Time of Insertion: 18:52 Data 03/16/24 18:14 03/16/24 18:14 A&P Assessment and plan (1) Femoral fracture: Mid femoral fracture after a fall after she got startled by her dog while trying to take a step. At baseline state of health previously. She would like to proceed with repair. She is normally active and attends [employer]. She denies any chest pain or pressure, dyspnea on exertion. Orthopedics has been consulted. She understands increase in operative risk in her case including due to her advanced age. However, she would like to proceed with surgery as she would like to try to regain her functional status. Reviewed vitals, CBC, INR, CMP, UA, EKG, To rotation right bowel branch block, pending official read, reviewed chest x- ray, pelvis x-ray, femoral x-ray, ER note, discussed with ER provider. Will hold morning losartan. N.p.o. after midnight. Pain control with acetaminophen, hydrocodone, IV morphine for severe breakthrough pain. 1 dose of VTE prophylaxis anticipation of surgical procedure. DVT prophylaxis postsurgery per orthopedic once safe. Monitor for risk of bleeding with femoral fracture, reassess blood counts. Noted mild hyponatremia, sodium 129. Can increase risk of falls. Fall prevention. Regular diet. (2) Hyponatremia: Mild hyponatremia noted sodium 129. Regular diet. Reassess sodium. (3) HTN (hypertension): Hydralazine dose tonight. Hold morning hydralazine, losartan. Qualifiers: Hypertension type: primary hypertension Qualified Code(s): I10 - Essential (primary) hypertension Plan Incidentally noted right bundle branch block. Attestations 2 Medical Necessity Statement*: Admission over 2 midnights anticipated for assessment and management of displaced right femoral fracture in a lady of advanced age with additional comorbidities as above. and High MDM includes amount and/or complexity of data reviewed/ordered [ previous or external records, resulted lab(s)/test(s), ordered lab(s)/test(s), independent test interpretation and other healthcare professional discussion] and described risk of complication, morbidity or mortality of management as documented Diagnoses Femoral fracture S72.90XA Hyponatremia E87.1 Primary hypertension I10 Hypertension type: primary hypertension
[2024-03-16 20:09] VITALS: BP 153/61; PULSE 135; RESP 16; O2SAT 94
[2024-03-16 20:50] VITALS: BP 117/70; BP 130/75; PULSE 78; PULSE 80; RESP 14; RESP 16; TEMP 36.4; O2SAT 91; O2SAT 95
[2024-03-16 21:02] VITALS: RESP 17; O2SAT 94
[2024-03-16] MEDS: morphine 4 mg/mL SDV 1 mL 2 MG IVP (21:02)
[2024-03-16] MEDS: enoxaparin 40 mg/0.4 mL Syringe SUBCUT (21:03)
[2024-03-16] MEDS: hyDRALAzine 25 mg Tablet PO (21:03)
[2024-03-16 21:07] VITALS: BMI 29.2
[2024-03-16] MEDS: HYDROcodone-acetaminophen 5-325 mg Tablet 1 TAB PO (23:08)
[2024-03-16 23:42] VITALS: BP 112/56; PULSE 75; RESP 16; TEMP 36.4; O2SAT 96
[2024-03-17] VITALS (18 sets, daily range): BP systolic 108–161; BP diastolic 44–73; PULSE 69–98; RESP 14–18; TEMP 36.4–37.2; O2SAT 93–97
[2024-03-17 06:01] LABS: Basophils % 0.1 %; Eosinophils # 0.1 10^3/uL (0.0-0.8); Eosinophils % 1.4 %; Hematocrit 34.5 % (36-47); Lymphocytes # 1.6 10^3/uL (0.8-4.8); Lymphocytes % 22.3 %; Mean Corpuscular HGB Conc 32.2 g/dL (30-55); Mean Corpuscular Hemoglobin 28.5 pg (27-33); Mean Corpuscular Volume 88.7 fl (85-98); Mean Platelet Volume 9.7 fL (7.4-10.4); Monocytes # 0.8 10^3/uL (0.2-0.9); Monocytes % 10.4 %; Neutrophils # 4.79 10^3/uL (1.8-7.7); Neutrophils % 65.5 %; Nucleated Red Blood Cells % 0 %; Platelet Count 263 10^3/cmm (157-399); Red Blood Count 3.89 10^6/uL (3.85-5.65); Red Cell Distribution Width 14.5 % (12.1-15.1); White Blood Count 7.31 10^3/uL (3.29-11.43)
[2024-03-17] MEDS: morphine 4 mg/mL SDV 1 mL 2 MG IVP ×2 (06:14→10:12)
--- NOTE | 2024-03-17 06:22 | PC.NURSE ---
Patient requested jewelry to be locked up in xi. Silver watch and silver cross necklace placed in denture cup and bag, with patient labels. This nurse placed items in [facility].
[2024-03-17 06:23] LABS: Anion Gap 10.1 (5-19); Blood Urea Nitrogen 12 mg/dL (8-23); Calcium 8.8 mg/dL (8.5-10.5); Carbon Dioxide 25 mmol/L (22-29); Chloride 101 mmol/L (98-107); Creatinine Clr Calc Pharmacy 42.6661; Glucose 100 mg/dL (65-115); Osmolality Calculated 274 mOsm/kg (285-295); Potassium 4.1 mmol/L (3.5-5.1); Sodium 132 mmol/L (136-145)
--- NOTE | 2024-03-17 09:29 | P.CONIM_ITS ---
Providers/Reason For Consult 2 Consulting Physician/Specialty*: Hospitalist Reason for Consult*: Right femur fracture Attending Physician: Louis Senior Primary Care Provider: Alonzo Rivas MD History of Present Illness History of Present Illness Elvira Gonzalez is a 88 year old female was trying to take stairs back into the house, but got distracted by her dog running at her, missed a step and fell down with severe pain in her right proximal leg. In ER she is found to have a right femoral fracture. Patient also subsequently has a right total knee on. Review of Systems 2 Const: Denies: fever(s), chills, body aches or malaise ENMT: Denies: throat pain Card: Denies: chest pain, edema, pre-syncope or dyspnea on exertion Resp: Denies: dyspnea, productive cough, change in phlegm color or hemoptysis GI: Denies: abdominal pain, nausea, vomiting, diarrhea, constipation, hematochezia or melena : Denies: flank pain, urinary frequency or hematuria Musc: Denies: back pain Neuro: Denies: headache(s) or confusion Medications/Allergies Home Medications Medication Instructions Recorded Confirmed Last Taken Type calcium carbonate (Calcium 600) 600 mg PO DAILY 08/08/19 03/16/24 Unknown History hydralazine 25 mg tablet 25 mg PO TID #270 tabs 04/01/23 03/16/24 Unknown Rx alendronate 70 mg tablet See Rx Instructions .Route 11/15/23 03/16/24 Unknown Rx .COMPLEX #12 tabs losartan 100 mg tablet 100 mg PO DAILY #90 tabs 12/06/23 03/16/24 Unknown Rx omeprazole 20 mg capsule,delayed 20 mg PO DAILY 02/17/24 03/16/24 Unknown History release oxybutynin chloride 5 mg tablet 5 mg PO DAILY 02/17/24 03/16/24 Unknown History alprazolam 0.25 mg tablet 0.25 mg PO PRN 03/16/24 03/16/24 Unknown History amlodipine 10 mg tablet 10 mg PO ONCE 03/16/24 03/16/24 Unknown History Allergies Allergy/AdvReac Type Severity Reaction Status Date / Time Penicillins Allergy Unknown Verified 03/16/24 17:38 Current Medications Generic Name Dose Route Start Last Admin Trade Name Freq PRN Reason Stop Dose Admin Hydrocodone Bitart/Acetaminophen 1 tab 03/16/24 20:13 03/16/24 23:08 Hydrocodone-Acetaminophen 5-325 Mg Tablet PO 1 tab Q4H PRN Administration MODERATE TO SEVERE PAIN Morphine Sulfate 2 mg 03/16/24 20:13 03/17/24 06:14 Morphine 4 Mg/Ml Sdv 1 Ml IVP 2 mg Q4H PRN Administration SEVERE PAIN PFSH Acute 2 PFSH: Medical History History of nonmelanoma skin cancer HTN (hypertension) GERD (gastroesophageal reflux disease) RBBB Surgical History S/P tubal ligation History of hip surgery Left S/P total knee replacement Bilateral S/P tonsillectomy History of suburethral sling procedure Family History Sister Diabetes Denies family history of CAD (coronary artery disease) Clotting disorder Dementia Chronic kidney disease (CKD) Suicide Anesthesia complication Bleeding disorder Lung disease Cancer Stroke Social History Smoking and tobacco/nicotine status: unknown if used tobacco/nicotine Alcohol intake: current Alcohol intake frequency: few times a week Alcohol type: wine Substance/Drug Use: never Vitals/I&O/Wt Last Vital Signs Temp 98.1 F 03/17/24 07:51 Pulse 69 03/17/24 07:51 Resp 17 03/17/24 07:51 BP 111/60 03/17/24 07:51 Pulse Ox 94 03/17/24 07:51 O2 Del Method Room Air 03/17/24 07:51 03/16/24 03/17/24 03/17/24 22:59 06:59 14:59 Intake Total 120 / 120 Output Total 500 / 500 100 / 600 Balance -380 / -380 -100 / -480 Weight last 48 hrs Weight 150 lb 3.2 oz Weight 150 lb Weight 150 lb Physical Exam 2 Narrative: Patient is in bed pain is controlled. Alert and oriented x 3 Head is normocephalic atraumatic Respirations are intact No evidence of any rashes or infection 5/5 strength in bilateral upper and lowe r extremities Sensation intact in all extremities Deep tendon reflexes 2 out of 4 bilateral upper and lower extremities Right leg is externally rotated and shortened. Knee is flexed Urinary Catheter Management: Rojas: Cath Placed During This Visit: yes Reason for Continuing Indwelling Catheter: Perioperative Use in Selected Surgeries Urinary Catheter Date of Insertion: 03/16/24 Urinary Catheter Time of Insertion: 18:52 Data 03/17/24 05:18 03/17/24 05:18 A&P Assessment and plan (1) Closed femur fracture: Right femur fracture plan to do retrograde intramedullary nail. I had an open and honest discussion with the patient about the risks, benefits and alternatives to both surgical and nonsurgical treatment. The patient verbalized understanding of the inherent unpredictability associated with surgery. Risk of surgery were discussed including, but not limited to, infection, bleeding, temporary and permanent nerve damage, continued pain, stiffness, incomplete healing, need for revision surgery, blood clot and other complications. The patient verbalized understanding that there is spine is elective in nature and if they find any of these risks to be unacceptable then they should choose not to have the surgery. The patient verbalized understanding of these risks and elected to proceed with the surgery. Qualifiers: Encounter type: initial encounter Femur location: shaft Fracture alignment: displaced Fracture morphology: comminuted Laterality: right Qualified Code(s): S72.351A - Displaced comminuted fracture of shaft of right femur, initial encounter for closed fracture Consult Attestations 2 Medical Necessity Statement: Broken femur fracture Coding Level of Care Code Acute Code for [facility] Diagnoses Closed femur fracture S72.351A Encounter type: initial encounter Femur location: shaft Fracture alignment: displaced Fracture morphology: comminuted Laterality: right
--- NOTE | 2024-03-17 11:19 | P.ANESASSM_ITS ---
Pre-Anesthetic Assessment Height/Weight: Height 5 ft Weight 150 lb 3.2 oz Temp Pulse Resp BP Pulse Ox O2 Del Method 98.1 F 69 17 111/60 94 Room Air 03/17/24 07:51 03/17/24 07:51 03/17/24 10:12 03/17/24 07:51 03/17/24 10:12 03/17/24 07:51 Preop Diagnosis: Femur fracture Operation Date: 03/17/24 12:15 Proposed Procedures p IM Femoral Nail Insertion(Right) - Bruce Burrell, DO Was Beta Aly taken within 24 hours: N/A Was Clonidine taken within 24 hours: N/A Last intake: Intake Last Liquid Date 03/16/24 Last Liquid Time 22:30 Last Solid Date 03/16/24 Last Solid Time 11:00 Social No alcohol and No tobacco Exam alert, oriented x 3, clear to auscultation bilaterally and regular rate & rhythm Airway Submandibular: within normal limits Cervical ROM: within normal limits Mallampati: Class III Dentition: full Anesthetic Plan ASA status: 2 Anesthesia: General Other: No prior issues with anesthesia NPO since yesterday History of hypertension on losartan and hydralazine Denies any pulmonary issues Labs reviewed, chronic hyponatremia noted GERD on chart but patient denies Patient is very active, attends exercise classes 3 times per week Plan for general anesthesia Medications/Allergies Home Medications Medication Instructions Recorded Confirmed Last Taken Type calcium carbonate (Calcium 600) 600 mg PO DAILY 08/08/19 03/16/24 Unknown History hydralazine 25 mg tablet 25 mg PO TID #270 tabs 04/01/23 03/16/24 Unknown Rx alendronate 70 mg tablet See Rx Instructions .Route 11/15/23 03/16/24 Unknown Rx .COMPLEX #12 tabs losartan 100 mg tablet 100 mg PO DAILY #90 tabs 12/06/23 03/16/24 Unknown Rx omeprazole 20 mg capsule,delayed 20 mg PO DAILY 02/17/24 03/16/24 Unknown History release oxybutynin chloride 5 mg tablet 5 mg PO DAILY 02/17/24 03/16/24 Unknown History alprazolam 0.25 mg tablet 0.25 mg PO PRN 03/16/24 03/16/24 Unknown History amlodipine 10 mg tablet 10 mg PO ONCE 03/16/24 03/16/24 Unknown History Allergies Allergy/AdvReac Type Severity Reaction Status Date / Time Penicillins Allergy Unknown Verified 03/16/24 17:38 Current Medications Generic Name Dose Route Start Last Admin Trade Name Freq PRN Reason Stop Dose Admin Hydrocodone Bitart/Acetaminophen 1 tab 03/16/24 20:13 03/16/24 23:08 Hydrocodone-Acetaminophen 5-325 Mg Tablet PO 1 tab Q4H PRN Administration MODERATE TO SEVERE PAIN Morphine Sulfate 2 mg 03/16/24 20:13 03/17/24 10:12 Morphine 4 Mg/Ml Sdv 1 Ml IVP 2 mg Q4H PRN Administration SEVERE PAIN PFSH Anesthesia Medical History History of nonmelanoma skin cancer HTN (hypertension) GERD (gastroesophageal reflux disease) RBBB Surgical History S/P tubal ligation History of hip surgery Left S/P total knee replacement Bilateral S/P tonsillectomy History of suburethral sling procedure Family History Sister Diabetes Denies family history of CAD (coronary artery disease) Clotting disorder Dementia Chronic kidney disease (CKD) Suicide Anesthesia complication Bleeding disorder Lung disease Cancer Stroke Social History Smoking and tobacco/nicotine status: unknown if used tobacco/nicotine Alcohol intake: current Alcohol intake frequency: few times a week Alcohol type: wine Substance/Drug Use: never Data Anesthesia 03/17/24 05:18 03/17/24 05:18 Short CBC 03/16/24 03/17/24 Range/Units 18:14 05:18 WBC 14.77 H 7.31 (3.29-11.43) 10^3/uL Hgb 12.50 11.10 L (11.27-16.99) g/dL Hct 38.6 34.5 L (36-47) % MCV 88.3 88.7 (85-98) fl Plt Count 293 263 (157-399) 10^3/cmm Neut % (Auto) 85.1 65.5 % Neut # (Auto) 12.56 H 4.79 (1.8-7.7) 10^3/uL BMP 03/16/24 03/17/24 18:14 05:18 Sodium 129 L 132 L Potassium 5.1 4.1 Chloride 98 101 Carbon Dioxide 23 25 BUN 15 12 Creatinine 0.7 0.6 Glucose 148 H 100 Calcium 9.3 8.8 Liver Function 03/16/24 Range/Units 18:14 Total Bilirubin 0.2 (0.15-1.2) mg/dL AST 22 (0-32) U/L ALT 15 (0-33) U/L Alkaline Phosphatase 61 (35-105) U/L Albumin 3.8 (3.5-5.2) g/dL Urine 03/16/24 Range/Units 18:46 Urine Color Yellow (Yellow) Urine Appearance Clear (CLEAR) Urine pH 6.0 (5-7) Ur Specific [place] 1.013 (1.005-1.030) Urine Protein Negative (Negative) Urine Glucose (UA) Negative (Normal) Urine Ketones Negative (Negative) Urine Nitrate Negative (Negative) Urine Bilirubin Negative (Negative) Ur Leukocyte Esterase Negative (Negative) Urine RBC 0-2 (0-2) /hpf Urine WBC 0-5 (0-5) /hpf Blood Bank 03/16/24 03/16/24 18:14 19:08 Blood Type Cancelled A Positive Rho(D) Type Cancelled Rh positive Antibody Screen Cancelled Negative Coags 03/16/24 18:14 PT 11.80 L INR 0.84 Cardiac Studies: 2 No Data to Display
[2024-03-17] MEDS: clindamycin 600 MG/50 ML PREMIX 100 MG IV ×2 (11:37→18:50)
--- NOTE | 2024-03-17 11:45 | XR_ITS ---
WS: [id number] C-ARM RADIOGRAPHS RIGHT FEMUR; 10 IMAGES HISTORY: RT FEMUR ORIF; OR PICS COMPARISON: None available. Intraoperative intramedullary rodding of the mid segmental fracture of the femur. Fracture does appea r to be in good position and alignment on the imaging submitted. XR/XR femur RT min 2V* [id number] IMPRESSION: Intraoperative ORIF RIGHT femur fracture.
--- NOTE | 2024-03-17 13:08 | PM.OP ---
Operative Report Date of procedure: March 17, 2024 Pre-op diagnosis: Right femoral shaft fracture Post-op diagnosis: same Procedure done: Right intramedullary nail for femur fracture Surgeon: Bruce Burrell DO Estimated blood loss (mL): 50 Procedure: Right intramedullary nail for displaced femur shaft fracture Patient is brought to the op suite after undergoing anesthesia was placed in the supine position. All areas appear well-padded. Patient was placed on a triangle in order to facilitate traction of the fracture. Skin incision was made over the distal to the patella. Using previous skin incision.. Patient has a total knee in. Starting pin was inserted in the opening reamer was used to open the canal. The reduction finger was then placed and used to reduce the fracture. Once the fracture was reduced a guidewire was passed. Within the canal was reamed to 13. A size 11 Connie retrograde nail was then inserted. AP lateral showed the fracture was reduced. 2 distal locking screws were placed through the jig. And then 2 proximal screws were placed anterior posterior in the femoral nail. Again AP lateral fluoroscopy was taken to ensure that the fracture and hardware in 4 positions. Wounds were irrigated closed with Vicryl and brock. Sterile dressings were applied patient is transferred to the PACU in stable condition.
--- NOTE | 2024-03-17 13:45 | ANE.PACU2 ---
Inpatient post-anesthesia follow up: Airway intact: Yes Vital signs: Temperature 98.1 F Pulse Rate 83 Respiratory Rate 16 Blood Pressure 121/57 Pulse Oximetry 91 Oxygen Delivery Me thod Room Air Oxygen Flow Rate Fraction of Inspir ed Oxygen Hydration adequate: Yes Nausea and vomiting: No Pain level: 1 Mental status: Baseline
--- NOTE | 2024-03-17 13:50 | PC.NURSE ---
Patient returned from PACU at 1350 in stable condition. Pain is 10/10 in right leg.
[2024-03-17] MEDS: oxybutynin 5 mg Tablet PO (13:53)
[2024-03-17] MEDS: pantoprazole DR 40 mg Tablet PO (13:53)
[2024-03-17] MEDS: HYDROcodone-acetaminophen 5-325 mg Tablet 1 TAB PO ×2 (13:53→18:56)
[2024-03-17] MEDS: lanolin oint 7 gm 1 APPLIC TOPICAL (14:31)
--- NOTE | 2024-03-17 16:48 | P.PN_ITS ---
Subjective 2 Subjective: She is doing all right after surgery but is sore. Feels she will need pain medication. She is hungry. No chest pain or trouble breathing. Vitals/I&O/Wt Last Vital Signs Temp 98 F 03/17/24 14:35 Pulse 79 03/17/24 14:35 Resp 18 03/17/24 14:35 BP 126/57 03/17/24 14:35 Pulse Ox 94 03/17/24 14:35 O2 Del Method Nasal Cannula 03/17/24 14:35 03/17/24 03/17/24 03/17/24 06:59 14:59 22:59 Intake Total 50 / 50 Output Total 100 / 600 500 / 500 Balance -100 / -480 -450 / -450 Weight last 48 hrs Weight 68.13 kg Weight 68.039 kg Weight 68.039 kg Physical Exam 2 Const: COMMON NORMALS: patient oriented x3 and alert GENERAL APPEARANCE: c ooperative ORIENTATION/CONSCIOUSNESS: Yes awake HENMT: COMMON NORMALS: oropharynx normal Neck/C-Spine: COMMON NORMALS: no JVD Resp: COMMON NORMALS: normal respiratory effort and clear to auscultation bilaterally AUSCULTATION: clear to auscultation bilaterally Cardio: COMMON NORMALS: no JVD, regular rhythm, S1 normal heart sound present, S2 normal heart sound present and No murmurs present (Cardio) RHYTHM: regular rhythm HEART SOUNDS: S1 normal heart sound present and S2 normal heart sound present GI: COMMON NORMALS: Normal to inspection, nondistended, normoactive bowel sounds present, Soft to palpation and non-tender PALPATION: Yes Soft to palpation Extremity: COMMON NORMALS: no joint enlargement and no pedal edema N ARRATIVE EXTREMITY EXAM: Postoperative dressing right lower extremity. Neuro: COMMON NORMALS: patient oriented x3 and moves all extremities S ENSORIUM/ORIENTATION: Yes alert Skin: COMMON NORMALS: no rashes or lesions noted GENERAL SKIN EXAM: no rashes or lesions noted Urinary Catheter Management: Rojas: Cath Placed During This Visit: yes Reason for Continuing Indwelling Catheter: Perioperative Use in Selected Surgeries Urinary Catheter Date of Insertion: 03/16/24 Urinary Catheter Time of Insertion: 18:52 Data 03/17/24 05:18 03/17/24 05:18 A&P Assessment and plan (1) Femoral fracture: Status post femoral nail repair of right femoral fracture today. Doing well postoperatively. Reviewed vitals, CBC, CMP, UA. Discussed with her anemia, 11.1, recheck blood counts with anticipation of possibly some worsening anemia given midshaft fracture, surgery, on review WBC normal today. Reviewed operative note, EBL 50 mL. Add incentive spirometer, discussed with her. Activity per orthopedics. Pending PT assessment and discharge planning. She is considering going to SNF at [facility] if this should be beneficial. VTE prophylaxis per orthopedic surgery once safe. Rojas catheter in place, removed once mobilizing. Still needing pain medication, acetaminophen, hydrocodone, IV morphine for severe breakthrough. Noted mild hyponatremia, sodium noted improving, 132. Can increase risk of falls. Fall prevention. Regular diet. Cautioned her regarding risk of falls due to her dog which she states has already been thinking about as to how she needs to take extra precautions. Case management consultation. (2) Hyponatremia: Reviewed sodium, improving 132. Regular diet. Regular diet. Reassess sodium. (3) HTN (hypertension): Reviewed blood pressure, 126/57. Discussed with her risk of hypotension with anemia, pain medications. Will monitor. Will cautiously resume partial antihypertensives with lower dose hydralazine at 10 mg, escalate back to usual regimen depending on blood pressures. Qualifiers: Hypertension type: primary hypertension Qualified Code(s): I10 - Essential (primary) hypertension Plan Incidentally noted right bundle branch block. Attestations 2 Medical Necessity Statement*: Continue hospitalization after displaced femoral midshaft fracture in an elderly lady with comorbidities as above, reassessment of acute anemia, post discharge planning and arrangements. and High MDM includes described risk of complication, morbidity or mortality of management as documented Diagnoses Femoral fracture S72.90XA Hyponatremia E87.1 Primary hypertension I10 Hypertension type: primary hypertension
[2024-03-17] MEDS: hyDRALAzine 10 mg Tablet PO (20:48)
[2024-03-18] VITALS (8 sets, daily range): BP systolic 95–121; BP diastolic 52–69; PULSE 81–99; RESP 16–18; TEMP 36.6–37.1; O2SAT 90–94
[2024-03-18] MEDS: clindamycin 600 MG/50 ML PREMIX 100 MG IV ×2 (03:32→11:00)
[2024-03-18] MEDS: HYDROcodone-acetaminophen 5-325 mg Tablet 1 TAB PO ×3 (04:53→15:48)
[2024-03-18 05:46] LABS: Basophils % 0.1 %; Eosinophils % 0.1 %; Hematocrit 28.7 % (36-47); Lymphocytes # 1.2 10^3/uL (0.8-4.8); Lymphocytes % 15.2 %; Mean Corpuscular HGB Conc 31.4 g/dL (30-55); Mean Corpuscular Hemoglobin 28.9 pg (27-33); Mean Corpuscular Volume 92.3 fl (85-98); Mean Platelet Volume 9.7 fL (7.4-10.4); Monocytes # 1.1 10^3/uL (0.2-0.9); Monocytes % 13.4 %; Neutrophils # 5.64 10^3/uL (1.8-7.7); Neutrophils % 70.9 %; Nucleated Red Blood Cells % 0 %; Platelet Count 214 10^3/cmm (157-399); Red Blood Count 3.11 10^6/uL (3.85-5.65); Red Cell Distribution Width 14.6 % (12.1-15.1); White Blood Count 7.96 10^3/uL (3.29-11.43)
[2024-03-18 05:57] LABS: Anion Gap 14.7 (5-19); Blood Urea Nitrogen 11 mg/dL (8-23); Calcium 8.1 mg/dL (8.5-10.5); Carbon Dioxide 22 mmol/L (22-29); Chloride 101 mmol/L (98-107); Creatinine Clr Calc Pharmacy 42.6661; Glucose 115 mg/dL (65-115); Osmolality Calculated 276 mOsm/kg (285-295); Potassium 4.7 mmol/L (3.5-5.1); Sodium 133 mmol/L (136-145)
[2024-03-18] MEDS: hyDRALAzine 10 mg Tablet PO ×3 (08:11→22:49)
[2024-03-18] MEDS: pantoprazole DR 40 mg Tablet PO (08:11)
[2024-03-18] MEDS: morphine 4 mg/mL SDV 1 mL 2 MG IVP (08:11)
[2024-03-18] MEDS: oxybutynin 5 mg Tablet PO (08:11)
--- NOTE | 2024-03-18 11:52 | P.PN_ITS ---
Subjective 2 Subjective: Patient sitting in chair. Complaining of pain in her right femur. Vitals/I&O/Wt Last Vital Signs Temp 98.1 F 03/18/24 07:49 Pulse 83 03/18/24 07:49 Resp 16 03/18/24 08:11 BP 121/57 03/18/24 07:49 Pulse Ox 91 03/18/24 08:11 O2 Del Method Room Air 03/18/24 07:49 03/17/24 03/18/24 03/18/24 22:59 06:59 14:59 Intake Total 1010 / 1060 170 / 1230 530 / 530 Balance 1010 / 560 170 / 730 530 / 530 Weight last 48 hrs Weight 150 lb Weight 150 lb 3.2 oz Weight 150 lb Weight 150 lb Physical Exam 2 Narrative: Dressing clean dry and intact Urinary Catheter Management: Rojas: Cath Placed During This Visit: yes, but has since been removed by the nurse Reason for Continuing Indwelling Catheter: Decision to DC Catheter Urinary Catheter Date of Insertion: 03/16/24 Urinary Catheter Time of Insertion: 18:52 Date Urinary Catheter Removed: 03/18/24 Time Urinary Catheter Discontinued: 11:10 Data 03/18/24 05:21 03/18/24 05:21 A&P Assessment and plan (1) Femoral fracture: Postop day #1 right femur fracture IM nail. Lovenox for DVT prophylaxis Up with physical therapy Likely needs to go to a half-way she lives alone. Qualifiers: Encounter type: subsequent encounter Femur location: shaft Fracture type: closed Fracture morphology: spiral Fracture alignment: displaced L aterality: right Fracture healing: with routine healing Qualified Code(s): S 72.341D - Displaced spiral fracture of shaft of right femur, subsequent encounter for closed fracture with routine healing Attestations 2 Medical Necessity Statement*: Per primary service Coding Level of Care Code Acute Code for [facility] Fwd Diagnoses Closed displaced spiral fracture of shaft of right femur with routine healing, subsequent encounter S72.341D Encounter type: subsequent encounter Femur location: shaft Fracture type: closed Fracture morphology: spiral Fracture alignment: displaced Laterality: right Fracture healing: with routine healing
--- NOTE | 2024-03-18 19:39 | P.PN_ITS ---
Subjective 2 Subjective: Pain is bothering her. Otherwise she is doing okay in terms of her breathing, no chest pain or pressure. Vitals/I&O/Wt Last Vital Signs Temp 98.8 F 03/18/24 16:00 Pulse 90 03/18/24 16:00 Resp 16 03/18/24 16:00 BP 121/69 03/18/24 16:00 Pulse Ox 91 03/18/24 16:00 O2 Del Method Room Air 03/18/24 16:00 03/18/24 03/18/24 03/18/24 06:59 14:59 22:59 Intake Total 170 / 1230 1010 / 1010 480 / 1490 Balance 170 / 730 1010 / 1010 480 / 1490 Weight last 48 hrs Weight 68.039 kg Weight 68.13 kg Weight 68.039 kg Physical Exam 2 Const: COMMON NORMALS: patient oriented x3 and alert GENERAL APPEARANCE: c ooperative ORIENTATION/CONSCIOUSNESS: Yes awake HENMT: COMMON NORMALS: oropharynx normal Neck/C-Spine: COMMON NORMALS: no JVD Resp: COMMON NORMALS: normal respiratory effort and clear to auscultation bilaterally AUSCULTATION: clear to auscultation bilaterally Cardio: COMMON NORMALS: no JVD, regular rhythm, S1 normal heart sound present, S2 normal heart sound present and No murmurs present (Cardio) RHYTHM: regular rhythm HEART SOUNDS: S1 normal heart sound present and S2 normal heart sound present GI: COMMON NORMALS: Normal to inspection, nondistended, normoactive bowel sounds present, Soft to palpation and non-tender PALPATION: Yes Soft to palpation Extremity: COMMON NORMALS: no joint enlargement and no pedal edema N ARRATIVE EXTREMITY EXAM: Postoperative dressing right lower extremity. Neuro: COMMON NORMALS: patient oriented x3 and moves all extremities S ENSORIUM/ORIENTATION: Yes alert Skin: COMMON NORMALS: no rashes or lesions noted GENERAL SKIN EXAM: no rashes or lesions noted Urinary Catheter Management: Rojas: Cath Placed During This Visit: yes, but has since been removed by the nurse Reason for Continuing Indwelling Catheter: Decision to DC Catheter Urinary Catheter Date of Insertion: 03/16/24 Urinary Catheter Time of Insertion: 18:52 Date Urinary Catheter Removed: 03/18/24 Time Urinary Catheter Discontinued: 11:10 Data 03/18/24 05:21 03/18/24 05:21 A&P Assessment and plan (1) Femoral fracture: She is still having pain, continued to require treatment including IV morphine. She is awaiting PT assessment. She would like to pursue rehabilitation at SNF. Will need arrangements once case management is back on Tuesday. Discussed with orthopedic surgeon. Reviewed vitals, CBC, BMP. Noted worsening anemia hemoglobin down to 9. SCD for DVT prophylaxis at current time. Reviewed orthopedic note. Ortho considering Lovenox for VTE prophylaxis once deemed safe. Repeat blood counts. Rojas catheter removed today, however, since 11 AM when it was removed has not urinated so far, 150-200 mL in the bladder on bladder scan. Per discussion with nursing staff if does not urinate over the next 2-3 hours may have to replace Rojas catheter. Status post femoral nail repair of right femoral fracture today. Noted mild hyponatremia, sodium noted improving, 133. Can increase risk of falls. Fall prevention. Regular diet. Cautioned her regarding risk of falls due to her dog which she states has already been thinking about as to how she needs to take extra precautions. Case management consultation. Qualifiers: Encounter type: subsequent encounter Femur location: shaft Fracture type: closed Fracture morphology: spiral Fracture alignment: displaced L aterality: right Fracture healing: with routine healing Qualified Code(s): S 72.341D - Displaced spiral fracture of shaft of right femur, subsequent encounter for closed fracture with routine healing (2) Hyponatremia: Reviewed sodium, improving 133. Regular diet. Regular diet. Reassess sodium. (3) HTN (hypertension): Blood pressure low normal. 1 episode of lower low blood pressure today 95/64. Reviewed BUN, creatinine. Repeat renal function. Resumed on lower dose hydralazine, so far this is all that has been needed. Hold off escalating/resuming amlodipine. Reassess blood pressures. Qualifiers: Hypertension type: primary hypertension Qualified Code(s): I10 - Essential (primary) hypertension Plan Incidentally noted right bundle branch block. Attestations 2 Medical Necessity Statement*: Continue hospitalization after displaced femoral midshaft fracture in an elderly lady with comorbidities as above, reassessment of acute anemia, post discharge planning and arrangements. and High MDM includes amount and/or complexity of data reviewed/ordered [ previous or external records, resulted lab(s)/test(s), ordered lab(s)/test(s) and other healthcare professional discussion] and described risk of complication, morbidity or mortality of management as documented Diagnoses Closed displaced spiral fracture of shaft of right femur with routine healing, subsequent encounter S72.341D Encounter type: subsequent encounter Femur location: shaft Fracture type: closed Fracture morphology: spiral Fracture alignment: displaced Laterality: right Fracture healing: with routine healing Hyponatremia E87.1 Primary hypertension I10 Hypertension type: primary hypertension
[2024-03-19 04:00] VITALS: BP 148/69; PULSE 100; RESP 18; TEMP 36.6; O2SAT 92
[2024-03-19 06:02] LABS: Basophils % 0.1 %; Eosinophils # 0.1 10^3/uL (0.0-0.8); Eosinophils % 0.5 %; Lymphocytes # 1.5 10^3/uL (0.8-4.8); Lymphocytes % 14.1 %; Mean Corpuscular HGB Conc 31.5 g/dL (30-55); Mean Corpuscular Hemoglobin 28.6 pg (27-33); Mean Corpuscular Volume 90.6 fl (85-98); Mean Platelet Volume 9.8 fL (7.4-10.4); Monocytes # 1.1 10^3/uL (0.2-0.9); Monocytes % 10.8 %; Neutrophils # 7.82 10^3/uL (1.8-7.7); Neutrophils % 73.8 %; Nucleated Red Blood Cells % 0 %; Platelet Count 188 10^3/cmm (157-399); Red Blood Count 2.87 10^6/uL (3.85-5.65); Red Cell Distribution Width 14.5 % (12.1-15.1); White Blood Count 10.58 10^3/uL (3.29-11.43)
[2024-03-19] MEDS: HYDROcodone-acetaminophen 5-325 mg Tablet 1 TAB PO ×2 (06:14→11:46)
[2024-03-19 06:20] LABS: Anion Gap 14.4 (5-19); Blood Urea Nitrogen 12 mg/dL (8-23); Calcium 8.1 mg/dL (8.5-10.5); Carbon Dioxide 22 mmol/L (22-29); Chloride 100 mmol/L (98-107); Creatinine Clr Calc Pharmacy 42.6802; Glucose 132 mg/dL (65-115); Osmolality Calculated 276 mOsm/kg (285-295); Potassium 4.4 mmol/L (3.5-5.1); Sodium 132 mmol/L (136-145)
[2024-03-19] MEDS: oxybutynin 5 mg Tablet PO (08:10)
[2024-03-19] MEDS: hyDRALAzine 10 mg Tablet PO (08:10)
[2024-03-19] MEDS: pantoprazole DR 40 mg Tablet PO (08:10)
[2024-03-19 08:20] VITALS: BP 121/67; PULSE 98; RESP 16; TEMP 36.6; O2SAT 90
--- NOTE | 2024-03-19 10:06 | PM.PN ---
Subjective Subjective: Patient is postop day #2 from her right femur nail. Patient is doing well better than yesterday. Pain is better controlled sitting up in chair currently. Vitals/I&O/Wt Last Vital Signs Temp 97.8 F 03/19/24 08:20 Pulse 98 03/19/24 08:20 Resp 16 03/19/24 08:20 BP 121/67 03/19/24 08:20 Pulse Ox 90 03/19/24 08:20 O2 Del Method Room Air 03/19/24 08:20 03/18/24 03/19/24 03/19/24 22:59 06:59 14:59 Intake Total 480 / 1490 120 / 1610 120 / 120 Balance 480 / 1490 120 / 1610 120 / 120 Weight last 48 hrs Weight 150 lb 4.8 oz Weight 150 lb Physical Exam Narrative: Dressing with some drainage at this point it has been reinforced. Urinary Catheter Management: Rojas: Cath Placed During This Visit: yes, but has since been removed by the nurse Reason for Continuing Indwelling Catheter: Decision to DC Catheter Urinary Catheter Date of Insertion: 03/16/24 Urinary Catheter Time of Insertion: 18:52 Date Urinary Catheter Removed: 03/18/24 Time Urinary Catheter Discontinued: 11:10 Data 03/19/24 05:53 03/19/24 05:53 A&P Assessment and plan (1) Femoral fracture: Postop day #2 right IM nail femur. Weight-bear as tolerated Anticipate discharge to detention. Qualifiers: Encounter type: subsequent encounter Femur location: shaft Fracture type: closed Fracture morphology: spiral Fracture alignment: displaced Laterality: right Fracture healing: with routine healing Qualified Code(s): S72.341D - Displaced spiral fracture of shaft of right femur, subsequent encounter for closed fracture with routine healing Attestations Medical Necessity Statement*: Per primary service Coding Level of Care Code Acute Code for [facility] Fwd Diagnoses Closed displaced spiral fracture of shaft of right femur with routine healing, subsequent encounter S72.341D Encounter type: subsequent encounter Femur location: shaft Fracture type: closed Fracture morphology: spiral Fracture alignment: displaced Laterality: right Fracture healing: with routine healing
[2024-03-19 12:15] VITALS: BP 126/60; PULSE 91; RESP 17; TEMP 36.4; O2SAT 92
--- NOTE | 2024-03-19 12:35 | PM.DCS ---
Discharge Providers Date of Admission: 03/16/24 18:19 Date of Discharge: March 19, 2024 Attending Provider at Admission: Louis Senior Attending Provider at Discharge: John Claudio MD Primary Care Provider: Alonzo Rivas MD Diagnoses at Discharge Discharge Diagnosis (1) Femoral fracture: Status: Acute Qualifiers: Encounter type: subsequent encounter Femur location: shaft Fracture type: closed Fracture morphology: spiral Fracture alignment: displaced Laterality: right Fracture healing: with routine healing Qualified Code(s): S72.341D - Displaced spiral fracture of shaft of right femur, subsequent encounter for closed fracture with routine healing Reason for Visit Reason for Visit: right hip pain - post fall Hospital Course Hospital Course This is a 88-year-old female with a past medical history of hypertension who presents to [facility] for a fall and right femoral fracture Patient was admitted to [facility] for femoral fracture, status post surgical intervention, tolerated procedure well, will be discharged to residential facility for rehab Patient's hospitalization was complicated with postoperative anemia, hemoglobin down to 8.2, no reported bloody or black stools, Lovenox for DVT prophylaxis was held. On discharge she will be discharged on aspirin 325 with Protonix, Carafate, with close follow-up with primary care provider as outpatient. Repeat hemoglobin tomorrow if hemoglobin drops below 7 will require a unit of blood. Physical Exam Const: COMMON NORMALS: no acute distress and patient oriented x3 Resp: COMMON NORMALS: normal respiratory effort, No retractions, No use of accessory muscles and clear to auscultation bilaterally AUSCULTATION: clear to auscultation bilaterally Cardio: COMMON NORMALS: regular rate, regular rhythm, S1 normal heart sound present and S2 normal heart sound present RATE: regular rate RHYTHM: regular rhythm HEART SOUNDS: S1 normal heart sound present and S2 normal heart sound present GI: COMMON NORMALS: Normal to inspection, nondistended, normoactive bowel sounds present and non-tender Extremity: COMMON NORMALS: no pedal edema Neuro: COMMON NORMALS: patient oriented x3 Psych: COMMON NORMALS: mental status grossly normal Urinary Catheter Management: Rojas: Cath Placed During This Visit: yes, but has since been removed by the nurse Reason for Continuing Indwelling Catheter: Decision to DC Catheter Urinary Catheter Date of Insertion: 03/16/24 Urinary Catheter Time of Insertion: 18:52 Date Urinary Catheter Removed: 03/18/24 Time Urinary Catheter Discontinued: 11:10 Discharge Data Studies Completed and Pending Completed Studies During Hospitalization Category Date Time Status XR chest 1V portable [id number] Stat Exams 03/16/24 17:29 Completed XR femur RT min 2V* [id number] Routine Exams 03/17/24 11:45 Completed XR femur RT min 2V* [id number] Stat Exams 03/16/24 17:28 Completed XR pelvis 1-2V* [id number] Stat Exams 03/16/24 17:28 Completed Pending at discharge Category Date Time Status COVID [SARS Covid-2 Antigen] Routine Lab 03/19/24 12:12 Uncollected Ferritin Routine Lab 03/19/24 12:20 Ordered Hemoglobin and Hematocrit Stat Lab 03/19/24 12:16 Ordered TIBC [Total Iron Binding Capacity] Routine Lab 03/19/24 12:20 Ordered Radiology Impressions Pelvis X-Ray 03/16/24 17:28 IMPRESSION: No acute findings. Chest X-Ray 03/16/24 17:29 IMPRESSION: No acute findings. Femur X-Ray 03/17/24 11:45 IMPRESSION: Intraoperative ORIF RIGHT femur fracture. Laboratory Results WBC 10.58 10^3/uL (3.29-11.43) 03/19/24 05:53 RBC 2.87 10^6/uL (3.85-5.65) L 03/19/24 05:53 Hgb 8.20 g/dL (11.27-16.99) L 03/19/24 05:53 Hct 26.0 % (36-47) L 03/19/24 05:53 MCV 90.6 fl (85-98) 03/19/24 05:53 MCH 28.6 pg (27-33) 03/19/24 05:53 MCHC 31.5 g/dL (30-55) 03/19/24 05:53 RDW 14.5 % (12.1-15.1) 03/19/24 05:53 Plt Count 188 10^3/cmm (157-399) 03/19/24 05:53 MPV 9.8 fL (7.4-10.4) 03/19/24 05:53 Neut % (Auto) 73.8 % 03/19/24 05:53 Lymph % (Auto) 14.1 % 03/19/24 05:53 [place] % (Auto) 10.8 % 03/19/24 05:53 Eos % (Auto) 0.5 % 03/19/24 05:53 Baso % (Auto) 0.1 % 03/19/24 05:53 Neut # (Auto) 7.82 10^3/uL (1.8-7.7) H 03/19/24 05:53 Lymph # (Auto) 1.5 10^3/uL (0.8-4.8) 03/19/24 05:53 [place] # (Auto) 1.1 10^3/uL (0.2-0.9) H 03/19/24 05:53 Eos # (Auto) 0.1 10^3/uL (0.0-0.8) 03/19/24 05:53 Baso # (Auto) 0.0 10^3/uL (0.0-0.1) 03/19/24 05:53 Nucleated RBC % (auto) 0 % 03/19/24 05:53 Nucleated RBCs # 0.0 /100WBC 03/19/24 05:53 PT 11.80 SECONDS (12.1-14.9) L 03/16/24 18:14 INR 0.84 (0.8-1.2) 03/16/24 18:14 Sodium 132 mmol/L (136-145) L 03/19/24 05:53 Potassium 4.4 mmol/L (3.5-5.1) 03/19/24 05:53 Chloride 100 mmol/L (98-107) 03/19/24 05:53 Carbon Dioxide 22 mmol/L (22-29) 03/19/24 05:53 Anion Gap 14.4 (5-19) 03/19/24 05:53 BUN 12 mg/dL (8-23) 03/19/24 05:53 Creatinine 0.6 mg/dL (0.5-0.9) 03/19/24 05:53 GFR Calculation Not Reportable 03/19/24 05:53 Glucose 132 mg/dL (65-115) H 03/19/24 05:53 Calculated Osmolality 276 mOsm/kg (285-295) L 03/19/24 05:53 Calcium 8.1 mg/dL (8.5-10.5) L 03/19/24 05:53 Total Bilirubin 0.2 mg/dL (0.15-1.2) 03/16/24 18:14 AST 22 U/L (0-32) 03/16/24 18:14 ALT 15 U/L (0-33) 03/16/24 18:14 Alkaline Phosphatase 61 U/L (35-105) 03/16/24 18:14 Total Protein 6.7 g/dL (6.6-8.7) 03/16/24 18:14 Albumin 3.8 g/dL (3.5-5.2) 03/16/24 18:14 Globulin 2.9 g/dL (1.3-4.6) 03/16/24 18:14 Urine Color Yellow (Yellow) 03/16/24 18:46 Urine Appearance Clear (CLEAR) 03/16/24 18:46 Urine pH 6.0 (5-7) 03/16/24 18:46 Ur Specific [place] 1.013 (1.005-1.030) 03/16/24 18:46 Urine Protein Negative (Negative) 03/16/24 18:46 Urine Glucose (UA) Negative (Normal) 03/16/24 18:46 Urine Ketones Negative (Negative) 03/16/24 18:46 Urine Blood Negative (Negative) 03/16/24 18:46 Urine Nitrate Negative (Negative) 03/16/24 18:46 Urine Bilirubin Negative (Negative) 03/16/24 18:46 Urine Urobilinogen 0.2 mg/dL (Negative) 03/16/24 18:46 Ur Leukocyte Esterase Negative (Negative) 03/16/24 18:46 Urine RBC 0-2 /hpf (0-2) 03/16/24 18:46 Urine WBC 0-5 /hpf (0-5) 03/16/24 18:46 Ur Squamous Epith Cells 0-5 /hpf (0-5) 03/16/24 18:46 Amorphous Sediment Not Reportable 03/16/24 18:46 Urine Bacteria None seen /hpf (NONE) 03/16/24 18:46 Hyaline Casts 0.40 /lpf 03/16/24 18:46 Blood Type A Positive 03/16/24 19:08 Rho(D) Type Rh positive 03/16/24 19:08 Antibody Screen Negative 03/16/24 19:08 Vitals Last Vital Signs Temp 97.6 F 03/19/24 12:15 Pulse 91 03/19/24 12:15 Resp 17 03/19/24 12:15 BP 126/60 03/19/24 12:15 Pulse Ox 92 03/19/24 12:15 O2 Del Method Room Air 03/19/24 12:15 Discharge Plan Discharge Patient Disposition: Xfer SNF Condition: Stable Prescriptions: New hydrocodone-acetaminophen 5-325 mg Tablet 1 tab PO Q6H PRN (Reason: Moderate To Severe Pain) 7 Days Qty: 28 0RF hydralazine 10 mg Tablet 10 mg PO TID 30 Days Qty: 90 0RF aspirin 325 mg capsule 325 mg PO DAILY 30 Days Qty: 30 0RF pantoprazole [Protonix] 40 mg tablet,delayed release (DR/EC) 40 mg PO DAILY 30 Days Qty: 30 0RF sucralfate [Carafate] 1 gram tablet 1 g PO BID 30 Days Qty: 60 0RF Continued calcium carbonate [Calcium 600] 600 mg calcium (1,500 mg) tablet 600 mg PO DAILY alendronate 70 mg tablet See Rx Instructions .ROUTE .COMPLEX Qty: 12 3RF Dose Instruction: Take 1 tablet by mouth once a week Rx Instructions: Take 1 tablet by mouth once a week oxybutynin chloride 5 mg tablet 5 mg PO DAILY alprazolam 0.25 mg tablet 0.25 mg PO PRN Discontinued losartan 100 mg tablet 100 mg PO DAILY Qty: 90 3RF hydralazine 25 mg tablet 25 mg PO TID Qty: 270 3RF omeprazole 20 mg capsule,delayed release(DR/EC) 20 mg PO DAILY amlodipine 10 mg tablet 10 mg PO ONCE Discharge Orders: Discharge Order (Routine); Ordered 03/19/24 Ordered By: John Claudio Referrals: [facility] [Outside] Bruce Burrell DO [Physician] - 2 weeks (We have notified your physician's clinic of the need for a follow-up appointment to be scheduled. If you have not heard from them within the next 2 business days, please call them directly. ) Alonzo Rivas MD [Primary Care Provider] - 1-3 days Discharge Diet: Cardiac Discharge Activity: Resume usual activity Patient Instructions: Acute Wound Care (DC), Opioid Safety, Post Anesthesia Care Activity Restrictions/Additional Instructions: You are being discharged from the hospital today during which time you have been under the care of Dr. Burrell. You had a right femur fracture. You were treated for this injury with right intramedullary nail for the femur. You may resume you normal diet (including any special diets as directed by your primary doctor) as well as your home medications. You should follow up with you primary doctor if you have any questions regarding medication you took prior to your stay in the hospital. You may take your pain medication as prescribed. After the first few days, take your pain medication as needed. Do not drive or drink alcohol while taking your pain medication. Your injury may increase your risk of developing a blood clot,or DVT, in your arm or leg. This could potentially dislodge and travel to your lungs and become a life threatening condition called apulmonary embolus,or PE. You have been prescribed Lovenox to be taken to prevent this. Frequent movement of the feet will also help prevent this from occurring. If you develop any new or worsening cough, chestpain, bloody sputum or shortness of breath, call 911 or go to the EmergencyRoom. Always keep your surgical incision/dressing clean and dry. If you experience increasing pain at your incision site, redness, swelling, increasing discharge, foul odors, or fevers (greater than 100.4), night sweats or chills you should call the office at the above number. If you feel this is an emergency you should be evaluated in the Emergency Department of a nearby hospital. Orthopedic Patient Instructions Summary: Weight Bearing: As tolerated Activity: As tolerated. Diet: Regular. Wound Care: Keep dressing clean and dry. Anticoagulation: Lovenox Pain Medication: Take only as needed. Ice, rest and elevation will be of great benefit. Please plan to follow-up [facility] Dr Burrell in 2 weeks. You will need to call the clinic [phone] to schedule this visit. Thank you far allowing me to participate in your care. Do not hesitate to call the office with any questions or concerns. -Please recheck your hemoglobin tomorrow -Please use hydrocodone sparingly for pain, do not drive or operate machinery or drink while taking medication Discharge Attestations Time Spent in Discharge Care*: greater than 30 min Quality Metrics Clinical Quality Measures [ No reported AMI, CVA or VTE this stay] Coding Level of Care Code 05968 Total time (in minutes) for Discharge: 45 Diagnoses Closed displaced spiral fracture of shaft of right femur with routine healing, subsequent encounter S72.341D Encounter type: subsequent encounter Femur location: shaft Fracture type: closed Fracture morphology: spiral Fracture alignment: displaced Laterality: right Fracture healing: with routine healing
--- NOTE | 2024-03-19 12:46 | PC.SOCIAL ---
IMM Update pg 2 of IMM Updated and reviewed w/ patient. Copy provided and copy dated, initialed and placed in chart.
[2024-03-19 13:16] LABS: Hematocrit 28.9 % (36-47)
[2024-03-19 13:35] LABS: Ferritin 121 ng/mL (15-150); Iron 31 ug/dL (37-145); Percent Saturation 12.9 % (20-50); Total Iron Binding Capacity 239 mcg/dl; Unsaturated Iron Binding 208 ug/dL (112-347)
[2024-03-19 13:39] LABS: SARS Covid-2 Antigen negative (Negative)
--- NOTE | 2024-03-19 13:47 | PC.NURSE ---
report called to Corina at [facility]. all questions answered. [facility] will be sendign transport. patient is resting in bed, belongings packed and at bedside. will continue to monitor patient while awaiting transport.
== END 2024-03-19 14:13 | disposition skilled nursing facility (03) | DRG 481 ==
LOC: ER 18:20 → MEDSURG 19:11
PROVIDERS: Orthopaedic Surgery; Admitting Provider Internal Medicine; Emergency Provider Emergency Medicine; PCP Family Medicine; Visit Provider Family Medicine
PROC: 0QS836Z Reposition Right Femoral Shaft with Intramedullary Internal Fixation Device, Percutaneous Approach (ICD-10-PCS; principal; 2024-03-17 11:55)
DX: S72.351A Displaced comminuted fracture of shaft of right femur, initial encounter for closed fracture (principal); D62 Acute posthemorrhagic anemia; E87.1 Hypo-osmolality and hyponatremia; W01.0XXA Fall on same level from slipping, tripping and stumbling without subsequent striking against object, initial encounter; Z11.52 Encounter for screening for COVID-19; Z85.828 Personal history of other malignant neoplasm of skin; I10 Essential (primary) hypertension; K21.9 Gastro-esophageal reflux disease without esophagitis; I45.10 Unspecified right bundle-branch block; Z96.653 Presence of artificial knee joint, bilateral; Z83.3 Family history of diabetes mellitus
CPT/HCPCS: 36415; 51702; 71045; 72170; 73552; 76000; 80048; 80053; 81001; 82728; 83540; 83550; 85014; 85018; 85025; 85610; 86850; 86900; 87426; 93005; 96365; 96372; 97161; 97166; 97530; 99285; C1713; J1100; J1650; J2270; J2371; J2405; J2704; J2710; J3010; J3490

== ENCOUNTER → 2024-04-03 09:02 | Outpatient (BNVA) | payer MEDICARE, SELFPAY | PROVIDERS: PCP Family Medicine; Visit Provider Orthopaedic Surgery | DX: M25.552 Pain in left hip (principal); S72.341D Displaced spiral fracture of shaft of right femur, subsequent encounter for closed fracture with routine healing; X58.XXXD Exposure to other specified factors, subsequent encounter | CPT/HCPCS: 73552; 99024 ==

== ENCOUNTER → 2024-05-01 10:36 | Outpatient (BNVA) | payer MEDICARE, SELFPAY | PROVIDERS: PCP Family Medicine; Visit Provider Orthopaedic Surgery | DX: Z98.890 Other specified postprocedural states (principal); X58.XXXD Exposure to other specified factors, subsequent encounter | CPT/HCPCS: 73502; 99024 ==

== ENCOUNTER → 2024-06-08 12:18 | Outpatient (BNVA) | payer MEDICARE, SELFPAY | PROVIDERS: PCP Family Medicine; Visit Provider Internal Medicine Cardiovascular Disease | DX: R07.9 Chest pain, unspecified (principal); I45.10 Unspecified right bundle-branch block | CPT/HCPCS: 93005 ==

== ENCOUNTER → 2024-06-12 13:00 | Outpatient (BNVA) | payer MEDICARE, SELFPAY | PROVIDERS: PCP Family Medicine; Visit Provider Orthopaedic Surgery | DX: S72.341D Displaced spiral fracture of shaft of right femur, subsequent encounter for closed fracture with routine healing (principal); X58.XXXD Exposure to other specified factors, subsequent encounter | CPT/HCPCS: 73502; 99024 ==

== ENCOUNTER → 2024-09-13 12:58 | Outpatient (BNVA) | payer MEDICARE, SELFPAY | PROVIDERS: PCP Family Medicine; Visit Provider Orthopaedic Surgery | DX: S72.341D Displaced spiral fracture of shaft of right femur, subsequent encounter for closed fracture with routine healing (principal); X58.XXXD Exposure to other specified factors, subsequent encounter | CPT/HCPCS: 73502; 99213 ==